=== PATIENT | male | born 1935 | race Caucasian/White ===

== ENCOUNTER 2019-09-29 17:58 | Observation (INO) | payer MEDICARE, BC ==
--- NOTE | 2019-09-29 18:21 | ED ---
General Adult HPI - General Chief complaint: Extremity Injury, Lower Stated complaint: blood clot Time Seen by Provider: 09/29/19 18:08 Source: patient, RN notes reviewed Mode of arrival: ambulatory Limitations: no limitations - History of Present Illness Initial comments: 84-year-old male presents to the emergency department for a chief complaint of swelling of the right leg. This occurred while patient was down in [place] and started on about September 14. Patient then came by vehicle back to [place] last week. Swelling did not improve so patient had a d-dimer performed which was positive. Patient had an outpatient ultrasound performed today. She was sent to the emergency department for evaluation of this ultrasound report. He denies any pain of the right lower side. Denies any chest pains or shortness of breath. Patient has no other complaints at this time including shortness of breath, chest pain, abdominal pain, nausea or vomiting, headache, or visual changes. - Related Data Home Medications Medication Instructions Recorded Confirmed Allopurinol [Zyloprim] 100 mg PO DAILY 09/29/19 09/29/19 Apixaban [Eliquis] 5 mg PO BID 09/29/19 09/29/19 Aspirin EC [Ecotrin Low Dose] 81 mg PO DAILY 09/29/19 09/29/19 Finasteride [Proscar] 5 mg PO DAILY 09/29/19 09/29/19 Folic Acid 1 mg PO DAILY 09/29/19 09/29/19 Thiamine [Vitamin B-1] 100 mg PO DAILY 09/29/19 09/29/19 Timolol 0.25% Ophth Soln [Timoptic 1 drop BOTH EYES HS 09/29/19 09/29/19 0.25% Ophth Soln] traZODone HCL [Desyrel] 50 mg PO HS 09/29/19 09/29/19 Allergies Allergy/AdvReac Type Severity Reaction Status Date / Time amoxicillin AdvReac Unknown Verified 09/29/19 19:04 Penicillins AdvReac HICCUPS Verified 09/29/19 19:04 Review of Systems ROS Statement: Those systems with pertinent positive or pertinent negative responses have been documented in the HPI. ROS Other: All systems not noted in ROS Statement are negative. Past Medical History Past Medical History: Prostate Disorder History of Any Multi-Drug Resistant Organisms: None Reported Past Surgical History: No Surgical Hx Reported Past Psychological History: Anxiety, Depression Smoking Status: Never smoker Past Alcohol Use History: Daily Past Drug Use History: None Reported General Exam Limitations: no limitations General appearance: alert, in no apparent distress Head exam: Present: atraumatic, normocephalic, normal inspection Eye exam: Present: normal appearance, PERRL, EOMI. Absent: scleral icterus, conjunctival injection, periorbital swelling ENT exam: Present: normal exam, mucous membranes moist Neck exam: Present: normal inspection, full ROM. Absent: tenderness, meningismus, lymphadenopathy Respiratory exam: Present: normal lung sounds bilaterally. Absent: respiratory distress, wheezes, rales, rhonchi, stridor Cardiovascular Exam: Present: regular rate, normal rhythm, normal heart sounds. Absent: systolic murmur, diastolic murmur, rubs, gallop, clicks GI/Abdominal exam: Present: soft, normal bowel sounds. Absent: distended, tenderness, guarding, rebound, rigid Neurological exam: Present: alert Psychiatric exam: Present: normal affect, normal mood Course Vital Signs 09/29/19 09/29/19 09/29/19 18:00 18:05 21:05 Temperature 98.1 F Pulse Rate 77 Pulse Rate [ 82 Supine Pulse Oximetery] Respiratory 20 20 18 Rate Blood Pressure 152/81 O2 Sat by Pulse 96 Oximetry Medical Decision Making - Medical Decision Making Ultrasound obtained 09/29/19 (today) shows a fairly extensive occlusive and nonocclusive right lower extremity deep venous thrombosis. This includes occlusive mid and distal popliteal vein DVT and nonocclusive right common femoral vein and proximal right femoral vein DVT. Case was discussed with Dr. Torres who accepts admission. Patient was heparinized. Dr. Torres does request a consult to Dr. Vanegas which was ordered. Patient was ordered nothing by mouth diet after midnight. Patient's son Eloina did express patient has difficulty sleeping at night and trazodone has not been helping. Patient was ordered Ativan when necessary for insomnia. - Lab Data Result diagrams: 09/29/19 18:49 09/29/19 18:49 Disposition Clinical Impression: Dvt femoral (deep venous thrombosis) Disposition: ADMITTED IP TO THIS [facility] Condition: Fair Is patient prescribed a controlled substance at d/c from ED?: No Time of Disposition: 18:49
[2019-09-29] MEDS ORDERED: NALOXONE 0.4 MG/ML 1 ML VIAL IV PRN (18:45)
[2019-09-29] MEDS ORDERED: HYDROcodone/APAP 5-325MG 1 EACH TAB PO PRN (18:45)
[2019-09-29] MEDS ORDERED: LORazepam 0.5 MG TAB PO PRN (18:54)
[2019-09-29] MEDS ORDERED: HEPARIN SODIUM,PORCINE 10,000 UNIT/ML 1 ML VIAL IV ONE (18:55)
[2019-09-29] MEDS ORDERED: HEPARIN SODIUM,PORCINE 5,000 UNIT/ML 1 ML VIAL IV PRN (18:55)
[2019-09-29] MEDS ORDERED: HEPARIN SOD,PORK IN 0.45% NACL 25,000 UNIT in 0.45% NACL 1 250ML.BAG IV SCH (19:00)
[2019-09-29 19:15] LABS: HCT 38.9 % (39.0-53.0); HGB 13.1 gm/dL (13.0-17.5); MCH 37.4 pg (25.0-35.0); MCHC 33.8 g/dL (31.0-37.0); MCV 110.8 fL (80.0-100.0); Macrocytosis Marked; Platelet Count 262 k/uL (150-450); RBC 3.51 m/uL (4.30-5.90); RDW 14.6 % (11.5-15.5); WBC 5.4 k/uL (3.8-10.6)
[2019-09-29 19:20] LABS: INR 0.9 (<1.2); Partial Thromboplastin Time 22.6 sec (22.0-30.0); Prothrombin Time 9.7 sec (9.0-12.0)
[2019-09-29 19:30] LABS: ALT 46 U/L (4-49); AST 69 U/L (17-59); African American GFR (CKD) >90 (>60 ml/min/1.73 sqM); Albumin 3.3 g/dL (3.5-5.0); Alkaline Phosphatase 175 U/L (38-126); Anion Gap 7 mmol/L; Blood Urea Nitrogen 12 mg/dL (9-20); Calcium 8.6 mg/dL (8.4-10.2); Carbon Dioxide 27 mmol/L (22-30); Chloride 102 mmol/L (98-107); Glucose 106 mg/dL (74-99); Non-African American GFR(CKD) 84 (>60 ml/min/1.73 sqM); Potassium 3.6 mmol/L (3.5-5.1); Sodium 136 mmol/L (137-145); Total Bilirubin 0.5 mg/dL (0.2-1.3); Total Protein 6.1 g/dL (6.3-8.2)
[2019-09-29 19:33] LABS: Band Neutrophils % 2 %; Eosinophils # (M) 0.22 k/uL (0-0.7); Lymphocytes # (M) 1.08 k/uL (1.0-4.8); Metamyelocytes # (M) 0.22 k/uL (0); Metamyelocytes % 4 %; Monocytes # (M) 0.59 k/uL (0-1.0); Neutrophils % (M) 60 %; Nucleated Red Blood Cells 0 /100 WBC (0-0); Total Cells Counted 200
[2019-09-29] MEDS: SODIUM CHLORIDE 0.9% 1,000 ML IV SCH (20:04)
[2019-09-30] MEDS: SODIUM CHLORIDE 0.9% 1,000 ML IV SCH (05:18)
[2019-09-30 07:49] LABS: HCT 37.9 % (39.0-53.0); HGB 12.5 gm/dL (13.0-17.5); MCH 36.2 pg (25.0-35.0); MCHC 32.9 g/dL (31.0-37.0); MCV 109.9 fL (80.0-100.0); Macrocytosis Marked; Platelet Count 255 k/uL (150-450); RBC 3.45 m/uL (4.30-5.90); RDW 14.2 % (11.5-15.5); WBC 4.1 k/uL (3.8-10.6)
[2019-09-30 08:19] LABS: Band Neutrophils % 2 %; Eosinophils # (M) 0.08 k/uL (0-0.7); Lymphocytes # (M) 1.35 k/uL (1.0-4.8); Metamyelocytes # (M) 0.25 k/uL (0); Metamyelocytes % 6 %; Monocytes # (M) 0.53 k/uL (0-1.0); Myelocytes # (M) 0.25 k/uL (0); Myelocytes % 6 %; Neutrophils % (M) 39 %; Nucleated Red Blood Cells 0 /100 WBC (0-0); Poikilocytosis (M) Present; Total Cells Counted 200
[2019-09-30 08:51] LABS: ALT 36 U/L (4-49); AST 47 U/L (17-59); African American GFR (CKD) >90 (>60 ml/min/1.73 sqM); Albumin 2.6 g/dL (3.5-5.0); Alkaline Phosphatase 134 U/L (38-126); Anion Gap 7 mmol/L; Blood Urea Nitrogen 10 mg/dL (9-20); Calcium 7.9 mg/dL (8.4-10.2); Carbon Dioxide 23 mmol/L (22-30); Chloride 107 mmol/L (98-107); Glucose 92 mg/dL (74-99); Non-African American GFR(CKD) 87 (>60 ml/min/1.73 sqM); Potassium 3.6 mmol/L (3.5-5.1); Sodium 137 mmol/L (137-145); Total Bilirubin 0.6 mg/dL (0.2-1.3); Total Protein 5.1 g/dL (6.3-8.2)
[2019-09-30] MEDS ORDERED: FINASTERIDE 5 MG TAB PO SCH (09:00)
[2019-09-30] MEDS ORDERED: FOLIC ACID 1 MG TAB PO SCH (09:00)
[2019-09-30] MEDS ORDERED: FAMOTIDINE 20 MG TAB PO SCH (09:00)
[2019-09-30] MEDS ORDERED: THIAMINE 100 MG TAB PO SCH (09:00)
[2019-09-30] MEDS ORDERED: ALLOPURINOL 100 MG TAB PO SCH (09:00)
[2019-09-30] MEDS ORDERED: ASPIRIN 81 MG PO SCH (09:00)
[2019-09-30] MEDS ORDERED: APIXABAN 5 MG TAB PO SCH (10:15)
[2019-09-30] MEDS ORDERED: DULoxetine HCL 30 MG CAPSULE.DR PO SCH (10:30)
--- NOTE | 2019-09-30 11:37 | CT ---
EXAMINATION TYPE: CT angio chest DATE OF EXAM: 09/30/2019 COMPARISON: HISTORY: PE CT DLP: 395.2 mGycm Automated exposure control for dose reduction was used. CONTRAST: CTA scan of the thorax is performed with IV Contrast, patient injected with 100 mL of Isovue 370, pul monary embolism protocol. MIP images are created and reviewed. 3D reconstructed images are created on an independent workstation and reviewed. FINDINGS: LUNGS: The lungs are grossly clear, there is no concerning parenchymal mass or nodule identified. Kapil e mild thickening present of the fissure in the right lower lobe. There is some dependent atelectatic changes present. There is no pleural effusion or pneumothorax seen. The tracheobronchial tree is p atent. AORTA: No additional significant abnormality is seen. MEDIASTINUM: There is satisfactory enhancement of the pulmonary artery and its branches, there is no CT evidence for pulmonary embolism. There are no greater than 1 cm hilar or mediastinal lymph nodes. No pericardial effusion is seen. There are coronary artery calcifications present. Prominence of p ulmonary artery, correlate for possible pulmonary artery hypertension right middle lobe segmental pul monary artery appears diminutive, there may be proximal stenosis, axial image 76 OTHER: The gallbladder shows abnormal wall thickening. Increased attenuation within the gallbladder neck is consistent with gallstones. Old posterior left rib fractures appear healed. Marked arthropath y noted in the right shoulder. There is a hiatal hernia. There is extensive thoracic spondylosis. Pun ctate nonobstructive calculi are present within the kidneys. The spleen is enlarged.. IMPRESSION: FINDINGS SUGGEST CHOLECYSTITIS. NO EVIDENT PULMONARY EMBOLISM. CORONARY ARTERY DISEASE AND ADDITIONAL FINDINGS ABOVE. SPLENOMEGALY, NONOBSTRUCTIVE NEPHROLITHIASIS. A Red level critical message alert has been initiated for Shemar Torres MD via the [email or web address] System on 09/30/2019 11:34 AM. This message alert has been sent to Shemar Torres MD via the preferences provided by the clinician for the receipt of Radiology Critical Findings. Message ID [id number].
[2019-09-30 12:08] VITALS: BP 184/89; PULSE 73; RESP 17; TEMP 97.4
--- NOTE | 2019-09-30 12:16 | XR ---
Lumbar spine HISTORY: Back pain 3 views the lumbar spine There is a compression fracture with loss of height of 50-75% at L2, retropulsion of approximately 6 mm. Bone mineralization is reduced. Spondylolysis with anterolisthesis grade 1 L5-S1. Bone mineraliza tion is reduced. Sclerosis of the posterior elements of the lumbar spine compatible with facet arthro erum. Loss of disc height present at intervertebral levels. Is multilevel spondylosis. Dense vascula r calcifications are present. Contrast material present within the renal collecting systems. IMPRESSION: Fracture of L2 is of indeterminate age, findings related to the referring clinician at th e time of interpretation. Degenerative disc disease, spondylolysis and spondylolisthesis L5-S1. Osteo penia. Facet arthropathy.
--- NOTE | 2019-09-30 12:17 | XR ---
Thoracic spine HISTORY: Back pain 3 views of the thoracic spine There is multilevel spondylosis. Thoracic vertebral bodies show preserved height and alignment. Disc spaces relatively preserved. Bone mineralization is reduced. Degenerative disc changes are also noted within the cervical spine. IMPRESSION: Thoracic spondylosis. Osteopenia.
--- NOTE | 2019-09-30 12:54 | XR ---
EXAMINATION TYPE: XR chest 2V DATE OF EXAM: 09/30/2019 COMPARISON: NONE HISTORY: Shortness of breath TECHNIQUE: Frontal and lateral views of the chest are obtained. FINDINGS: There is no focal air space opacity, pleural effusion, or pneumothorax seen. The cardiac silhouette size is within normal limits. Suspect coronary artery calcifications. The osseous structu res are intact. Thoracic spondylosis is present. The aorta is dense. There are overlying cardiac lead s. Marked arthropathy noted in the shoulders, high riding shoulders may be indicative of chronic rota tor cuff tears. IMPRESSION: No acute cardiopulmonary process. Coronary artery disease suspected.
--- NOTE | 2019-09-30 13:26 | P.HPIM ---
History of Present Illness H&P Date: 09/29/19 Chief Complaint: Right proximal DVT, severe edema, mild shortness of breath, elevated alk ph 84-year-old male with past medical history of BPH, gout and osteoarthritis who had mild insomnia and mild depression who lost his in 09/12/2019 for an acute illness developed to have multiple organs failure end up dying unexpectedly on suddenly. Patient traveled from [place] slept one night on the way back home but developed to have worsening and increased edema of the lower extremity specially in the right side started in [place] and become a lot worse after he made it to [facility]. His family ended up convincing him to go for testing had a Doppler of the right leg at [facility] came back with positive blood clot in the proximal vein. Patient brought to demurs department was Covid negative still having significant swelling and pain started on heparin drip we will admit patient to the hospital consult vascular further testing including CTA might be done especially in the light of his mild shortness of breath. Ex Patient never had any blood clot in the past no clotting factor problem no blood disorders and never been diagnosed with cancer. Review of Systems CONSTITUTIONAL: Well-developed no acute respiratory distress. EYES: No icterus sclerae, no conjunctivitis. EARS, NOSE, MOUTH, THROAT, and FACE: No sore throat, lymphadenopathy, carotid bruits or deformity. RESPIRATORY: Mild SOB no cough or wheezes. CARDIOVASCULAR: No CP, Palpitation, PND, Orthopnea, or angina. GASTROINTESTINAL: No Abd pain, Nausea or vomiting, no Diarrhea or constipation, No GI Bleed, no distention or masses. GENITOURINARY: Negative for Hematuria or UTI, no kidney stones. INTEGUMENT/BREAST: Negative for any muscular injury with mild osteoarthritis.. HEMATOLOGIC/LYMPHATIC: Negative for bleed or purpura. MUSCULOSKELTAL: Mild edema of the lower extremity with discomfort and pain in the right side. Lower back discomfort. NEURLOGICAL: No LOC, Sz or syncope, blurred vision dizziness or abnormality.. BEHAVIORAL/PSYCH: Mild depression and acute daily. ENDOCRINE: Negative. Past Medical History Past Medical History: Prostate Disorder History of Any Multi-Drug Resistant Organisms: None Reported Past Surgical History: No Surgical Hx Reported Past Anesthesia/Blood Transfusion Reactions: No Reported Reaction Past Psychological History: Anxiety, Depression Smoking Status: Never smoker Past Alcohol Use History: Daily Past Drug Use History: None Reported Medications and Allergies Home Medications Medication Instructions Recorded Confirmed Type Allopurinol [Zyloprim] 100 mg PO DAILY 09/29/19 09/29/19 History Aspirin EC [Ecotrin Low Dose] 81 mg PO DAILY 09/29/19 09/29/19 History Finasteride [Proscar] 5 mg PO DAILY 09/29/19 09/29/19 History Folic Acid 1 mg PO DAILY 09/29/19 09/29/19 History Thiamine [Vitamin B-1] 100 mg PO DAILY 09/29/19 09/29/19 History Timolol 0.25% Ophth Soln [Timoptic 1 drop BOTH EYES HS 09/29/19 09/29/19 History 0.25% Ophth Soln] traZODone HCL [Desyrel] 50 mg PO HS 09/29/19 09/29/19 History Apixaban [Eliquis] 10 mg PO DAILY #60 tab 09/30/19 Rx Famotidine [Pepcid] 20 mg PO DAILY tab 09/30/19 Rx HYDROcodone/APAP 5-325MG [[place] 1 each PO Q4HR PRN #12 tab 09/30/19 Rx 5-325] LORazepam [Ativan] 0.5 mg PO HS PRN #7 tab 09/30/19 Rx Allergies Allergy/AdvReac Type Severity Reaction Status Date / Time amoxicillin AdvReac Unknown Verified 09/29/19 19:04 Penicillins AdvReac HICCUPS Verified 09/29/19 19:04 Physical Exam Vitals: Vital Signs Temp Pulse Pulse Resp BP BP Pulse Ox 09/30/19 12:08 97.4 F L 73 17 184/89 97 09/30/19 08:00 73 17 09/30/19 05:18 98.4 F 77 22 147/74 92 L 09/30/19 00:00 82 18 09/29/19 22:09 97.9 F 82 18 147/69 95 09/29/19 21:05 82 18 09/29/19 18:05 20 09/29/19 18:00 98.1 F 77 20 152/81 96 Intake and Output 09/29/19 09/30/19 09/30/19 22:59 06:59 14:59 Intake Total 250 694.876 69.5 Balance 250 694.876 69.5 Intake: Intake, IV Titration 100 694.876 69.5 Amount Heparin Sod,Pork in 0.45% 94.876 69.5 NaCl 25,000 unit In 0.45 % NaCl 1 250ml.bag @ 18 UNITS/KG/HR 13.717 mls/hr IV .[id number] YOUNG Rx#: [id number] Sodium Chloride 0.9% 1, 100 600 000 ml @ 100 mls/hr IV . Q10H YOUNG Rx#:[id number] Oral 150 Other: Voiding Method Toilet Toilet Toilet Urinal Urinal Urinal # Voids 1 1 Weight 76.204 kg General Appearance: Alert, cooperative, no distress, appears stated age. Neck HEENT: Supple, no lymphadenopathy, no thyroid enlargement, no carotid bruits. Lungs: Clear to auscultation without crackles or wheezes no rhonchi, no deformity. Chest Wall: Chest wall normal expansion with deep inspiration no tenderness and no deformity was found on exam, no costochondral pain or discomfort. Heart: Regular rate and rhythm, S1, S2 normal, no murmur, rub or gallop. Back: Symmetric, no curvature, ROM normal, no CVA tenderness, slight discomfort in the lower lumbar area.. Abdomen: Soft, non-tender, bowel sounds active all four quadrants, no masses, no organomegaly. Extremities: Extremities normal, atraumatic, no cyanosis or edema. Pulses: 2+ and symmetric. Skin: Skin color, texture, tugor normal, no rashes or lesions. Neurologic: Alert oriented x3 cranial nerves II through XII intact, no motor deficit, no abnormal balance or gait. Results CBC & Chem 7: 09/30/19 07:19 09/30/19 07:19 Labs: Abnormal Lab Results - Last 24 Hours (Table) 09/29/19 09/29/19 09/30/19 Range/Units 18:49 18:49 01:41 RBC 3.51 L (4.30-5.90) m/uL Hgb (13.0-17.5) gm/dL Hct 38.9 L (39.0-53.0) % MCV 110.8 H (80.0-100.0) fL MCH 37.4 H (25.0-35.0) pg Metamyelocytes # (Man) 0.22 H (0) k/uL Myelocytes # (Manual) (0) k/uL Macrocytosis Marked A APTT 69.8 H (22.0-30.0) sec Sodium 136 L (137-145) mmol/L Glucose 106 H (74-99) mg/dL Calcium (8.4-10.2) mg/dL AST 69 H (17-59) U/L Alkaline Phosphatase 175 H (38-126) U/L Total Protein 6.1 L (6.3-8.2) g/dL Albumin 3.3 L (3.5-5.0) g/dL 09/30/19 09/30/19 09/30/19 Range/Units 07:19 07:19 07:19 RBC 3.45 L (4.30-5.90) m/uL Hgb 12.5 L (13.0-17.5) gm/dL Hct 37.9 L (39.0-53.0) % MCV 109.9 H (80.0-100.0) fL MCH 36.2 H (25.0-35.0) pg Metamyelocytes # (Man) 0.25 H (0) k/uL Myelocytes # (Manual) 0.25 H (0) k/uL Macrocytosis Marked A APTT 50.9 H (22.0-30.0) sec Sodium (137-145) mmol/L Glucose (74-99) mg/dL Calcium 7.9 L (8.4-10.2) mg/dL AST (17-59) U/L Alkaline Phosphatase 134 H (38-126) U/L Total Protein 5.1 L (6.3-8.2) g/dL Albumin 2.6 L (3.5-5.0) g/dL Thrombosis Risk Factor Assmnt - DVT/VTE Prophylaxis DVT/VTE Prophylaxis: Pharmacologic Prophylaxis ordered, Mechanical Prophylaxis ordered - Choose All That Apply Any of the Below Risk Factors Present?: Yes Each Factor Represents 1 point: Swollen legs (current) Other Risk Factors: Yes Each Risk Factor Represents 3 Points: Age 75 years or older, History of DVT/PE Other congenital or acquired thrombophilia - If yes, enter type in comment: No Thrombosis Risk Factor Assessment Total Risk Factor Score: 7 Thrombosis Risk Factor Assessment Level: High Risk Assessment and Plan Assessment: 1 acute DVT of thrombosis of the right leg: Patient was hospitalized will fidelia nue heparin drip consult vascular and will switch patient to oral request specially if he does well in the next 24 hours. 2 mild shortness of breath: To exclude the possibility of PE patient will be going for CTA, continue anticoagulation for now. 3 lower back pain: X-ray of the lumbar spine will be done try to exclude any lytic lesion from metastasis continue smaller dose of hydrocodone for pain and mild muscle relaxer if needed. 4 abnormal liver function tests with elevated alkaline phosphatase: Patient will be going for L-spine x-ray, CAT scan and if needed further liver testing can be done. 5 BPH: Remain on alpha-gallito with finasteride PSA was requested to exclude any possibility for cancer. 6 mild anemia: Continue multivitamins for now. 7 history of gout: Remain on allopurinol. 8 acute depression and mild grief: Patient be started on the Loxitane continue trazodone and add smaller dose of benzodiazepine as needed. CODE STATUS: Full code. Admit patient to inpatient status for 1-2 nights.
--- NOTE | 2019-09-30 13:30 | P.DS ---
Providers Date of admission: 09/29/19 18:44 Attending physician: Shemar Torres Consults: 09/29/19 18:45 Consult Physician Routine Consulting Provider: Marcus Arndt Consult Reason/Comments: proximal DVT Do you want consulting provider notified?: Yes Primary care physician: Physician Nonstaff Hospital Course: Chief Complaint: Right proximal DVT, severe edema, mild shortness of breath, elevated alk ph 84-year-old male with past medical history of BPH, gout and osteoarthritis who had mild insomnia and mild depression who lost his in 09/12/2019 for an acute illness developed to have multiple organs failure end up dying unexpectedly on suddenly. Patient traveled from [place] slept one night on the way back home but developed to have worsening and increased edema of the lower extremity specially in the right side started in [place] and become a lot worse after he made it to [facility]. His family ended up convincing him to go for testing had a Doppler of the right leg at [facility] came back with positive blood clot in the proximal vein. Patient brought to demurs department was Covid negative still having significant swelling and pain started on heparin drip we will admit patient to the hospital consult vascular further testing including CTA might be done especially in the light of his mild shortness of breath. Ex Patient never had any blood clot in the past no clotting factor problem no blood disorders and never been diagnosed with cancer. Further testing with CTA was done with no sign of PE, incidentally found to have subacute cholecystitis, patient is not having any symptom patient and family like to take care of this as an outpatient when patient is more stable and subtle with his grief specially with no symptom at this point. Also patient had compression of the L2-L3 looks like from an old injury patient and family remember post fall over 6 month ago had mild injury no sign of lytic lesion and no need for bone scan at this point. Review of Systems CONSTITUTIONAL: Well-developed no acute respiratory distress. EYES: No icterus sclerae, no conjunctivitis. EARS, NOSE, MOUTH, THROAT, and FACE: No sore throat, lymphadenopathy, carotid bruits or deformity. RESPIRATORY: Mild SOB no cough or wheezes. CARDIOVASCULAR: No CP, Palpitation, PND, Orthopnea, or angina. GASTROINTESTINAL: No Abd pain, Nausea or vomiting, no Diarrhea or constipation, No GI Bleed, no distention or masses. GENITOURINARY: Negative for Hematuria or UTI, no kidney stones. INTEGUMENT/BREAST: Negative for any muscular injury with mild osteoarthritis.. HEMATOLOGIC/LYMPHATIC: Negative for bleed or purpura. MUSCULOSKELTAL: Mild edema of the lower extremity with discomfort and pain in the right side. Lower back discomfort. NEURLOGICAL: No LOC, Sz or syncope, blurred vision dizziness or abnormality.. BEHAVIORAL/PSYCH: Mild depression and acute daily. ENDOCRINE: Negative. Physical Exam Vitals: General Appearance: Alert, cooperative, no distress, appears stated age. Neck HEENT: Supple, no lymphadenopathy, no thyroid enlargement, no carotid bruits. Lungs: Clear to auscultation without crackles or wheezes no rhonchi, no deformity. Chest Wall: Chest wall normal expansion with deep inspiration no tenderness and no deformity was found on exam, no costochondral pain or discomfort. Heart: Regular rate and rhythm, S1, S2 normal, no murmur, rub or gallop. Back: Symmetric, no curvature, ROM normal, no CVA tenderness, slight discomfort in the lower lumbar area.. Abdomen: Soft, non-tender, bowel sounds active all four quadrants, no masses, no organomegaly. Extremities: Extremities normal, atraumatic, no cyanosis or edema. Pulses: 2+ and symmetric. Skin: Skin color, texture, tugor normal, no rashes or lesions. Neurologic: Alert oriented x3 cranial nerves II through XII intact, no motor deficit, no abnormal balance or gait. Assessment and Plan Assessment: 1 acute DVT of thrombosis of the right leg: Patient was hospitalized will continue heparin drip consult vascular and will switch patient to oral request specially if he does well in the next 24 hours. 2 mild shortness of breath: To exclude the possibility of PE patient will be going for CTA, continue anticoagulation for now. 3 lower back pain: X-ray of the lumbar spine will be done try to exclude any lytic lesion from metastasis continue smaller dose of hydrocodone for pain and mild muscle relaxer if needed. 4 abnormal liver function tests with elevated alkaline phosphatase: Patient will be going for L-spine x-ray, CAT scan and if needed further liver testing can be done. 5 BPH: Remain on alpha-gallito with finasteride PSA was requested to exclude any possibility for cancer. 6 mild anemia: Continue multivitamins for now. 7 history of gout: Remain on allopurinol. 8 acute depression and mild grief: Patient be started on the Loxitane continue trazodone and add smaller dose of benzodiazepine as needed. 9 cholecystitis: Finding consistent with subacute decided not to do surgery why patient is inpatient we'll plan to do surgery in the next few weeks. 10 lumbar spine compression: In L2-L3, continue conservative management can be on muscle relaxer and hydrocodone as needed. Patient has done very well I had long discussion with the family agreeable to do gallbladder surgery as an outpatient and patient will be going home on oral anticoagulation with Eliquis 10 mg twice a day for 7 days then 5 mg twice a day for at least the next 3-6 months. Prescription was sent to the pharmacy patient and family feel well about going home today and he is going to be follow-up in the office in 4 days. Patient Condition at Discharge: Fair Plan - Discharge Summary Discharge Rx Participant: No New Discharge Prescriptions: New LORazepam [Ativan] 0.5 mg PO HS PRN #7 tab PRN Reason: Insomnia Apixaban [Eliquis] 10 mg PO DAILY #60 tab HYDROcodone/APAP 5-325MG [[place] 5-325] 1 each PO Q4HR PRN #12 tab PRN Reason: Moderate Pain Famotidine [Pepcid] 20 mg PO DAILY tab Continue traZODone HCL [Desyrel] 50 mg PO HS Timolol 0.25% Ophth Soln [Timoptic 0.25% Ophth Soln] 1 drop BOTH EYES HS Thiamine [Vitamin B-1] 100 mg PO DAILY Folic Acid 1 mg PO DAILY Finasteride [Proscar] 5 mg PO DAILY Aspirin EC [Ecotrin Low Dose] 81 mg PO DAILY Allopurinol [Zyloprim] 100 mg PO DAILY Discontinued Apixaban [Eliquis] 5 mg PO BID Discharge Medication List Allopurinol [Zyloprim] 100 mg PO DAILY 09/29/19 [History] Aspirin EC [Ecotrin Low Dose] 81 mg PO DAILY 09/29/19 [History] Finasteride [Proscar] 5 mg PO DAILY 09/29/19 [History] Folic Acid 1 mg PO DAILY 09/29/19 [History] Thiamine [Vitamin B-1] 100 mg PO DAILY 09/29/19 [History] Timolol 0.25% Ophth Soln [Timoptic 0.25% Ophth Soln] 1 drop BOTH EYES HS 09/29/19 [History] traZODone HCL [Desyrel] 50 mg PO HS 09/29/19 [History] Apixaban [Eliquis] 10 mg PO DAILY #60 tab 09/30/19 [Rx] Famotidine [Pepcid] 20 mg PO DAILY tab 09/30/19 [Rx] HYDROcodone/APAP 5-325MG [[place] 5-325] 1 each PO Q4HR PRN #12 tab 09/30/19 [Rx] LORazepam [Ativan] 0.5 mg PO HS PRN #7 tab 09/30/19 [Rx] Follow up Appointment(s)/Referral(s): Shemar Torres MD [Medical Doctor] - 1 Week Patient Instructions/Handouts: Hydrocodone/Acetaminophen (By mouth), Lorazepam (By mouth), Apixaban (By mouth), Venous Thromboembolism (DC) Activity/Diet/Wound Care/Special Instructions: diet as tolerated activity limited until sen by call on Wednesday to schedule appointments (office closed on Sat) Discharge Disposition: HOME SELF-CARE
--- NOTE | 2019-09-30 20:48 | CONS ---
DATE OF CONSULTATION: 09/30/2019 This is an 84-year-old gentleman who was seen on consultation. The patient has developed deep vein thrombosis of the right lower extremity. Patient was administered heparin and started on Eliquis. No shortness of breath. The patient had a CT of the chest which showed no evidence for pulmonary embolism. The patient also was diagnosed with some cholecystitis issue. Patient has some issue of acute depression, patient on medication. PHYSICAL EXAMINATION: Patient was seen in his room, lying comfortably in bed. NECK: Supple. Trachea central. CHEST: Clear to auscultation. ABDOMEN: Soft. Femoral pulses are present. Dorsalis pedis is palpable. No vascular compromise of the right lower extremity. The patient is going home this afternoon and the patient will follow up with Dr. Torres and on Eliquis. At this point there is no indication for any surgical intervention. MMODL / IJN: [id number] / MTDD
[2019-09-30] MEDS ORDERED: traZODone HCL 50 MG TAB PO SCH (21:00)
[2019-09-30] MEDS ORDERED: TIMOLOL 0.25% OPHTH DROPS 5 ML BTL BOTH EYES SCH (21:00)
== END 2019-09-30 17:22 | disposition home or self-care (01) ==
LOC: EC 17:58 → 5NMEDONC 18:44
PROVIDERS: ADMIT Internal Medicine Geriatric Medicine; ATTEND Internal Medicine Geriatric Medicine
DX: I82.411 Acute embolism and thrombosis of right femoral vein (principal); I82.431 Acute embolism and thrombosis of right popliteal vein; D64.9 Anemia, unspecified; R06.02 Shortness of breath; F32.9 Major depressive disorder, single episode, unspecified; F41.9 Anxiety disorder, unspecified; G47.00 Insomnia, unspecified; N40.0 Benign prostatic hyperplasia without lower urinary tract symptoms; Z79.82 Long term (current) use of aspirin; Z79.899 Other long term (current) drug therapy; Z03.818 Encounter for observation for suspected exposure to other biological agents ruled out; Z88.1 Allergy status to other antibiotic agents; Z88.0 Allergy status to penicillin; R94.5 Abnormal results of liver function studies; R74.8 Abnormal levels of other serum enzymes; M10.9 Gout, unspecified; K81.9 Cholecystitis, unspecified; M48.56XA Collapsed vertebra, not elsewhere classified, lumbar region, initial encounter for fracture
CPT/HCPCS: 96366 ×2; 96376; 96365; 99285; 36415; 84153; 80053 ×2; 85025 ×2; 85610; 85730 ×2; 87635; 72070; 72100; 71046; 71275; G0378 ×2; S0138; J1644 ×2; Q9967

== ENCOUNTER → 2020-07-26 | Outpatient (CLI) | payer MEDICARE, BC ==
--- NOTE | 2020-07-26 13:13 | XR ---
EXAMINATION TYPE: XR Hip Complete LT DATE OF EXAM: 07/26/2020 CLINICAL HISTORY: Left hip pain for 6 weeks TECHNIQUE: AP and frogleg views of the left hip are obtained. COMPARISON: None. FINDINGS: There is advanced degenerative change left hip with marked joint space loss, there is bone -on-bone formation and extensive subchondral cystic change. Moderate to severe acetabular and head ne ck collar spurring. Deformity to the superior aspect humeral head or loss of spherical shape. There i s 1.3 cm ovoid bony density presumed intra-articular loose body. IMPRESSION: As above.
== END ==
LOC: RADXRMAIN 12:36
PROVIDERS: ATTEND Psychiatry & Neurology Neurology
DX: M16.12 Unilateral primary osteoarthritis, left hip (principal); M85.452 Solitary bone cyst, left pelvis; M76.892 Other specified enthesopathies of left lower limb, excluding foot; M21.952 Unspecified acquired deformity of left thigh
CPT/HCPCS: 73502

== ENCOUNTER → 2020-09-30 | Outpatient (CLI) | payer MEDICARE, BC ==
--- NOTE | 2020-09-30 12:18 | US ---
EXAMINATION TYPE: US abdomen complete DATE OF EXAM: 09/30/2020 COMPARISON: CT 09/30/2019 CLINICAL HISTORY: K81.9 Cholecystitis. Very difficult and limited exam due to overlying bowel gas and barrel chested body habitus EXAM MEASUREMENTS: Liver Length: 13.8 cm Gallbladder Wall: 0.4 cm this is mildly thickened. No pericholecystic fluid. CBD: 0.5 cm Spleen: 11.7 cm Right Kidney: 9.7 x 5.7 x 4.5 cm Left Kidney: 9.7 x 5.6 x 3.9 cm Pancreas: Obscured by bowel gas Liver: wnl as visualized Gallbladder: Difficult visualization, wall appears thickened. Some possible echogenic debris visuali zed Evidence for sonographic Babcock's sign: No CBD: wnl as visualized Spleen: wnl Right Kidney: No hydronephrosis or masses seen Left Kidney: No hydronephrosis or masses seen Upper IVC: Limited visualization Abd Aorta: Limited visualization Mildly thickened gallbladder wall without gallstones or pericholecystic fluid. Babcock's sonographic s ign is negative. The pancreas is obscured by overlying bowel gas. No renal calculi or hydronephrosis. IMPRESSION: 1. The pancreas is obscured by overlying bowel gas. Limited visualization of the abdominal aorta and IVC due to overlying bowel gas. 2. Mildly thickened gallbladder wall without gallstones or pericholecystic fluid. Babcock's sonographi c sign is negative. Common duct is within normal limits at 5 mm. 3. No hydronephrosis or shadowing renal calculi.
== END | disposition home or self-care (01) ==
LOC: RADUSWWP 10:09
PROVIDERS: ATTEND Internal Medicine Geriatric Medicine
DX: K81.9 Cholecystitis, unspecified (principal)
CPT/HCPCS: 76700

== ENCOUNTER → 2020-12-16 | Outpatient (CLI) | payer MEDICARE, BC ==
[2020-12-16 12:07] LABS: HCT 48.2 % (39.0-53.0); HGB 15.7 gm/dL (13.0-17.5); MCH 31.9 pg (25.0-35.0); MCHC 32.5 g/dL (31.0-37.0); MCV 98.1 fL (80.0-100.0); Mean Platelet Volume 6.9; Platelet Count 206 k/uL (150-450); RBC 4.92 m/uL (4.30-5.90); RDW 12.9 % (11.5-15.5); WBC 6.6 k/uL (3.8-10.6)
[2020-12-16 12:21] LABS: Calcium 9.1 mg/dL (8.4-10.2); Potassium 4.4 mmol/L (3.5-5.1); Total Bilirubin 0.9 mg/dL (0.2-1.3); Total Protein 6.7 g/dL (6.3-8.2)
[2020-12-16 12:23] LABS: Partial Thromboplastin Time 23.8 sec (22.0-30.0); Prothrombin Time 10.7 sec (9.0-12.0)
[2020-12-16 12:59] LABS: Appearance,Urine Clear (Clear); Bilirubin,Urine Negative (Negative); Blood,Urine Negative (Negative); Color,Urine Yellow; Glucose,Urine (UA) Negative (Negative); Ketones,Urine Negative (Negative); Leukocyte Esterase,Urine Negative (Negative); Nitrite,Urine Negative (Negative); Protein,Urine Negative (Negative); Specific Gravity,Urine 1.016 (1.001-1.035); Urobilinogen,Urine <2.0 mg/dL (<2.0)
== END | disposition home or self-care (01) ==
LOC: LABPAT 11:28
PROVIDERS: ATTEND Orthopaedic Surgery
DX: Z01.812 Encounter for preprocedural laboratory examination (principal); Z01.810 Encounter for preprocedural cardiovascular examination
CPT/HCPCS: 36415; 80053; 81003; 85027; 85610; 85730; 87070

== ENCOUNTER 2020-12-24 10:50 | Day surgery (SDC) | payer MEDICARE, BC ==
[2020-12-18 11:11] VITALS: BMI 27.2
[~2020-12-24 10:50] MED LIST: ACETAMINOPHEN TAB 500 MG TAB PO PRN; DEXAMETHASONE SOD PHOSPHATE 4 MG/ML 1 ML VIAL IV ONE; GABAPENTIN 300 MG CAP PO PRN; HYDROmorphone 0.5 MG/0.5 ML SYRINGE IVP PRN; MIDAZOLAM 2 MG/2 ML VIAL IV PRN; ONDANSETRON 4 MG/2 ML VIAL IVP ONE; ROPIVACAINE/EPI/CLONIDINE/KET 50 ML SYRINGE MISCELLANE PRN; TRANEXAMIC ACID 1,000 MG in SODIUM CHLORIDE 0.9% 100 ML IVPB PRN
[2020-12-24] MEDS: LACTATED RINGERS 1,000 ML IV SCH (11:17)
[2020-12-24] MEDS ORDERED: PROPOFOL 10 MG/ML 20 ML VIAL IV ONE (13:04)
[2020-12-24] MEDS ORDERED: MIDAZOLAM 2 MG/2 ML VIAL ONE (13:04)
[2020-12-24] MEDS ORDERED: HEPARIN SODIUM,PORCINE 10,000 UNIT/ML 1 ML VIAL ONE (13:04)
[2020-12-24] MEDS ORDERED: TRANEXAMIC ACID 1,000 MG/10 ML VIAL ONE (13:04)
[2020-12-24] MEDS ORDERED: SODIUM CHLORIDE 0.9% IRRIG 1,000 ML BTL IRRIGATION ONE (13:04)
[2020-12-24] MEDS ORDERED: SODIUM CHLORIDE 0.9% 100 ML BAG ONE (13:04)
[2020-12-24] MEDS ORDERED: NALOXONE 0.4 MG/ML 1 ML VIAL IV PRN (13:09)
[2020-12-24] MEDS ORDERED: HYDROmorphone 0.2 MG/1 ML SYRINGE IVP PRN (13:09)
[2020-12-24] MEDS ORDERED: ONDANSETRON 4 MG/2 ML VIAL IVP PRN (13:09)
[2020-12-24] MEDS ORDERED: HYDROmorphone 0.5 MG/0.5 ML SYRINGE IVP PRN ×2 (13:09)
[2020-12-24] MEDS ORDERED: MAGNESIUM HYDROXIDE 2,400 MG/10 ML CUP PO PRN (13:09)
[2020-12-24] MEDS ORDERED: HYDROcodone/APAP 7.5-325MG 1 EACH TAB PO PRN (13:11)
--- NOTE | 2020-12-24 14:23 | P.OP ---
Date of Procedure: 12/24/20 Preoperative Diagnosis: Severe osteoarthritis left hip Postoperative Diagnosis: Severe osteoarthritis left hip Procedure(s) Performed: Total hip arthroplasty with a direct anterior approach Implants: [employer] Polarstem standard size 5 [employer] R3, 3 hole hemispherical acetabular shell, 54 mm [employer] Reflection 6.5 mm cancellus screw, 20 mm 2 [employer] R3, XLPE 20 acetabular liner [employer]hew Oxinium femoral head 36 m, +0 All components were press-fit. The articulation is Oxinium on polyethylene. Anesthesia: spinal Surgeon: Gulshan Bhakta English As A Second Language Teacher #1: Melba Juares Estimated Blood Loss (ml): 150 (66 mL returned with Cell Saver) Pathology: other (Femoral head) Condition: stable Disposition: PACU Indications for Procedure: After failure of conservative treatment we discussed the surgical and nonsurgical treatment options at length. Patient wishes to proceed with a total hip arthroplasty with a direct anterior approach. Complications specific to this procedure were discussed at length, including but not limited to infection, leg length discrepancy, dislocation, nerve injury, and fracture. Covid-19 was also discussed at length with the patient, and they are aware of the current policies and procedures. The patient was given the option of delaying surgery, but they elect to proceed knowing these risks. Patient is aware of all these complications and informed consent was obtained Operative Findings: The operative findings are consistent with severe osteoarthritis of the left hip Description of Procedure: Patient was seen and evaluated in the preoperative area and the consent was reviewed. The operative site was marked with a skin marker. The patient was then brought to the operating room and given preoperative antibiotics intravenously. 1 g of Tranexamic acid was also given intravenously. A spinal anesthetic was administered by the anesthesia department. The patient was then placed on the [place] table with the bony prominences well-padded. The hip area was then prepped with a ChloraPrep solution and draped in the usual sterile fashion. A universal timeout was then performed, which confirmed the patient's name, surgical site, ALLERGIES, and procedure being performed on the consent. Next the incision site was located at 1 cm distal to the anterior superior iliac spine along the flexion crease of the hip. The skin and subcutaneous tissues were sharply incised. Incision was carefully dissected down to the fascia overlying the tensor fascia jacoby muscle. This fascia was then incised in line with the incision. Care was taken to stay laterally in order to avoid injuring the lateral femoral cutaneous nerve. Next, using blunt finger dissection, the tensor fascia jacoby muscle was dissected off its investing fascia. The muscle was then carefully retracted laterally with a cobra retractor over the lateral neck of the femur. Next, the circumflex vessels were identified and cauterized using the AquaMantis device. The anterior hip capsule was then exposed. The capsule was then opened and an inverted T fashion. Cobra retractors were then placed intracapsularly. The retractors were maintained intracapsular throughout the procedure. The proximal femur was then visualized. A small amount of traction was placed on the leg. The femoral neck was then osteotomized appropriate level above the lesser trochanter. A small wedge of bone was then removed from the remaining femoral head. Next, using a corkscrew the femoral head was removed from the acetabulum. On gross visual inspection, the femoral head had complete loss of articular cartilage and multiple periarticular osteophytes. The femoral head was then measured. Attention was then turned to the acetabulum. The acetabulum was exposed and any remaining labrum was excised. Sequential reaming of the acetabulum was performed using fluoroscopic guidance until there was a good bed of bleeding cancellus bone. When the appropriate size was reached, a trial was then placed. The position and fit of the trial was checked with fluoroscopy. The trial was then removed. Then, using fluoroscopic guidance, the final implant was impacted at 20 of anteversion and 40 of abduction, and fully seated in the acetabulum. 2 screws were then placed in the acetabulum. Again fluoroscopy was used to check position of the screws. Next, the liner was then impacted, with a 20 elevated liner located in the anterior superior quadrant. Component locking was confirmed. Attention was then directed to the femur. With the aid of the [place] table, the femur was externally rotated to approximately 130, extended, and adducted under the opposite leg. A side hook was then placed under the proximal femur, and the side hook elevator was used to elevate the proximal femur while releasing the capsule. Retractors were then placed. A capsular release was performed, as well as a release of the conjoined tendon, which afforded excellent visualization of the proximal femur. Next, a box osteotome was used to lateralize the proximal femur. A hand mixer was then used to locate the femoral canal. Sequential broaching was then performed with appropriate size which afforded excellent fixation in the proximal femur. A trial was then placed with appropriate head and neck, and the hip was gently reduced with the aid of the [place] table. Fluoroscopy was then used to check position of the components, as well as to ensure equal leg lengths. The hip was then gently dislocated and the trials were then removed. Final implants were then impacted and the hip was again reduced. Final fluoroscopic x-rays confirmed that the components were in anatomic position, as well as equal leg lengths. The hip was also taken through range of motion, and found to be stable. The hip was then copiously irrigated with antibiotic solution with pulsatile lavage. The hip was then irrigated with Irrisept solution. The soft tissues were then injected with a ropivacaine solution, which consisted of 246.25 mg of ropivacaine, 0.5 mg of epinephrine, 30 mg of Toradol, 80 g of clonidine, and 48.45 mL of sterile water, for a total of 100 mL of fluid injected. A second dose of 1 g of Tranexamic acid was also given intravenously. Any blood collected by Cell Saver was then returned to the patient at this time. The fascia was then closed with 2-0 strata fix suture. The subcutaneous tissue was closed with 3-0 Vicryl. The subcuticular tissue was closed with 3-0 strata fix suture. The skin was then closed with Exofin skin glue. After the glue and dried, and Optifoam silver impregnated dressing was applied. The patient was then transferred to the recovery room in stable condition. The assistant director of public works NITIN Arrington was required due to the complexity of surgery, and the need for skilled ophthalmology surgical technician for positioning, draping, exposure, retraction, and closure of the wound.
--- NOTE | 2020-12-24 15:04 | FL ---
EXAMINATION TYPE: FL guidance operating room, XR Hip Limited LT DATE OF EXAM: 12/24/2020 CLINICAL HISTORY: Left hip pain and advanced osteoarthritis. TECHNIQUE: Fluoroscopy. Limited intraoperative views left hip. COMPARISON: Left hip x-ray July 26, 2020. FINDINGS: Fluoroscopic guidance was provided during left hip replacement procedure performed by Dr. Bhakta. A total of 16 seconds of fluoroscopic time was utilized during the procedure and 3 spot in traoperative images are acquired. Intraoperative images acquired show metallic hardware from left hip arthroplasty satisfactory in posi tion on frontal projection. IMPRESSION: As Above.
--- NOTE | 2020-12-24 15:18 | XR ---
EXAMINATION TYPE: XR Hip Limited LT DATE OF EXAM: 12/24/2020 CLINICAL HISTORY: Left hip pain and osteoarthritis. TECHNIQUE: Single AP portable view of left hip is obtained immediately postoperatively. COMPARISON: Left hip x-ray July 26, 2020. FINDINGS: Metallic hardware from total left hip arthroplasty is seen and appears satisfactory in alig nment and position. There is evidence of recent surgery with surrounding subcutaneous gas noted . IMPRESSION: Metallic hardware from total left hip arthroplasty is satisfactory in position.
[2020-12-24] MEDS: SODIUM CHLORIDE 0.9% 1,000 ML IV SCH (17:33)
[2020-12-24] MEDS ORDERED: NAPROXEN 250 MG TAB PO PRN (17:37)
[2020-12-24] MEDS: HYDROcodone/APAP 7.5-325MG 1 EACH TAB PO PRN (20:17)
[2020-12-24 20:26] VITALS: RESP 18
[2020-12-24] MEDS ORDERED: DULoxetine HCL 60 MG CAPSULE.DR PO SCH (21:00)
[2020-12-24] MEDS ORDERED: SENNOSIDES-DOCUSATE SODIUM 1 EACH TAB PO SCH (21:00)
[2020-12-25] MEDS: HYDROcodone/APAP 7.5-325MG 1 EACH TAB PO PRN (03:03)
[2020-12-25] MEDS: SODIUM CHLORIDE 0.9% 1,000 ML IV SCH (03:19)
[2020-12-25] MEDS: LACTATED RINGERS 1,000 ML IV SCH (06:52)
--- NOTE | 2020-12-25 07:33 | P.DS ---
Providers Expected date of discharge: 12/25/20 Attending physician: Gulshan Bhakta Consults: 12/24/20 13:09 Consult Physician Routine Consulting Provider: Shemar Torres Reason/Comments: medical management Do you want consulting provider notified?: Yes Primary care physician: Shemar Torres - Discharge Diagnosis(es) (1) Primary osteoarthritis of left hip Current Visit: Yes Status: Acute (2) Status post total hip replacement, left Current Visit: Yes Status: Acute Hospital Course: This is an 85-year-old male with known history of degenerative arthritis of the left hip. The patient presents for evaluation. After discussion and consideration patient elects to proceed with total left hip arthroplasty with anterior approach. The patient is seen preoperatively by his primary care physician and cleared for surgery. Patient is admitted to [facility] on 12/24/2020 for total hip arthroplasty with anterior approach. The procedure is performed without complication or sequelae. The patient is doing well postoperatively. Labs and vital signs are stable on day of discharge. On day of discharge patient's hip incision is healing well. There is minimal erythema. There is no drainage noted at this time. There is minimal soft tissue swelling to the hip and thigh. Patient has full foot and ankle motion without difficulty or pain. Neurovascular status to the left lower extremity is intact. Patient is discharged to home in good condition. Please see med rec for accurate list of home medications. Plan - Discharge Summary Discharge Rx Participant: Yes New Discharge Prescriptions: New HYDROcodone/APAP 7.5-325MG [[place] 7.5-325] 1 - 2 tab PO Q6H PRN #32 tab PRN Reason: Pain Sennosides [Senokot] 2 tab PO DAILY PRN #60 tablet PRN Reason: Constipation Ondansetron Odt [Zofran Odt] 1 tab PO Q8HR PRN #10 tab PRN Reason: Nausea Apixaban [Eliquis] 2.5 mg PO BID 35 Days #70 tab No Action Finasteride [Proscar] 5 mg PO DAILY allopurinoL [Zyloprim] 100 mg PO DAILY DULoxetine HCL [Cymbalta] 60 mg PO HS B Complex-Vit C-Vit E-Zinc [Z-Bec] 1 tab PO DAILY Naproxen Sodium [Aleve] 220 mg PO BID PRN PRN Reason: Pain Tamsulosin [Flomax] 0.4 mg PO DAILY Cholecalciferol [Vitamin D3 (25 Mcg = 1000 Iu)] 50 mcg PO DAILY Discharge Medication List Finasteride [Proscar] 5 mg PO DAILY 09/29/19 [History] allopurinoL [Zyloprim] 100 mg PO DAILY 09/29/19 [History] B Complex-Vit C-Vit E-Zinc [Z-Bec] 1 tab PO DAILY 12/18/20 [History] Cholecalciferol [Vitamin D3 (25 Mcg = 1000 Iu)] 50 mcg PO DAILY 12/18/20 [History] DULoxetine HCL [Cymbalta] 60 mg PO HS 12/18/20 [History] Naproxen Sodium [Aleve] 220 mg PO BID PRN 12/18/20 [History] Tamsulosin [Flomax] 0.4 mg PO DAILY 12/18/20 [History] Apixaban [Eliquis] 2.5 mg PO BID 35 Days #70 tab 12/24/20 [Rx] HYDROcodone/APAP 7.5-325MG [[place] 7.5-325] 1 - 2 tab PO Q6H PRN #32 tab 12/24/20 [Rx] Ondansetron Odt [Zofran Odt] 1 tab PO Q8HR PRN #10 tab 12/24/20 [Rx] Sennosides [Senokot] 2 tab PO DAILY PRN #60 tablet 12/24/20 [Rx] Follow up Appointment(s)/Referral(s): Gulshan Bhakta DO [Doctor of Osteopathic Medicine] - 2 Weeks Activity/Diet/Wound Care/Special Instructions: Weightbearing as tolerated with walker. Leave dressing intact. Dressing may be removed by home care nurse or by patient in 7 days. Then change dressing twice daily until follow up. May shower with initial dressing intact and after removal. If dressing become saturated, please remove. Please take Eliquis postoperatively to help prevent blood clots. Recommend use of compression stockings daily until follow up to help prevent swelling and blood clots. May remove at night before sleeping. Please follow-up with [facility] in 2 weeks and call with any questions or concerns, . Discharge Disposition: HOME WITH HOME HEALTH SERVICES
[2020-12-25 07:46] VITALS: BP 143/78; PULSE 72; TEMP 98.4
[2020-12-25] MEDS ORDERED: allopurinoL 100 MG TAB PO SCH (09:00)
[2020-12-25] MEDS ORDERED: TAMSULOSIN 0.4 MG CAP.ER.24H PO SCH (09:00)
[2020-12-25] MEDS ORDERED: APIXABAN 2.5 MG TABLET PO SCH (09:00)
[2020-12-25] MEDS ORDERED: FINASTERIDE 5 MG TAB PO SCH (09:00)
--- NOTE | 2020-12-25 10:51 | P.CONS ---
History of Present Illness - Reason for Consult Consult date: 12/24/20 Requesting physician: Gulshan Bhakta - Chief Complaint Medical management left hip arthroplasty - History of Present Illness Is an 82-year-old pleasant gentleman patient of Dr. Torres. Known history of worse arthritis, CAD, BPH, who is on short-term anticoagulation for previous DVT of the right leg DVT was in September 2019, and has been of a crease. Patient will start on a eliquis per recommendation for postop DVT prophylaxis. He was cleared medically by Dr. Torres 12/03/2020. Patient denies any history of CVA, no CHF, no asthma no COPD. Left total hip arthroplasty performed on 12/24/2020 without complications, patient is seen without any significant symptoms, inclu ding chest pain shortness of breath, no nausea no vomiting. Review of Systems Constitutional: Reports as per HPI, Denies anorexia, Denies chills, Denies chronic headaches, Denies chronic pain, Denies daytime sleepiness, Denies fatigue, Denies fever, Denies lethargy, Denies malaise, Denies night sweats, Denies poor appetite, Denies sweats, Denies weakness, Denies weight gain, Denies weight loss Ears, nose, mouth and throat: Reports as per HPI Cardiovascular: Reports as per HPI, Denies chest pain, Denies claudication, Denies decreased exercise tolerance, Denies dyspnea on exertion, Denies edema, Denies high blood pressure, Denies irregular heart beat, Denies leg edema, Denies lightheadedness, Denies orthopnea, Denies palpitations, Denies paroxysmal nocturnal dyspnea, Denies phlebitis, Denies rapid heart beat, Denies shortness of breath, Denies syncope Respiratory: Reports as per HPI, Denies cough, Denies dyspnea, Denies home oxygen, Denies pain on inspiration, Denies wheezing Gastrointestinal: Reports as per HPI, Denies abdominal pain, Denies diarrhea, Denies heartburn Genitourinary: Reports as per HPI Musculoskeletal: Reports as per HPI, Reports gait dysfunction, Reports limitation of motion, Denies arm numbness/tingling, Denies muscle cramps, Denies neck stiffness Integumentary: Reports as per HPI Neurological: Reports as per HPI, Reports gait dysfunction, Denies aphasia, Denies ataxia, Denies balance difficulties, Denies burning pain, Denies change in mentation, Denies change in smell/taste, Denies change in speech, Denies confusion, Denies convulsions, Denies double vision, Denies head injury, Denies headaches, Denies hearing difficulties, Denies lack of coordination, Denies loss of vision, Denies memory loss, Denies migraines, Denies motor disturbance, Denies numbness, Denies paralysis, Denies paresthesias, Denies seizures, Denies sensory deficit, Denies spasticity, Denies syncope, Denies tic, Denies tingling, Denies transient paralysis, Denies tremors, Denies vertigo, Denies weakness, Denies visual changes Psychiatric: Reports as per HPI Endocrine: Reports as per HPI Hematologic/Lymphatic: Reports as per HPI Allergic/Immunologic: Reports as per HPI Past Medical History Past Medical History: Deep Vein Thrombosis (DVT), Hearing Disorder / Deafness, Osteoarthritis (OA), Prostate Disorder Additional Past Medical History / Comment(s): DVT 09/2019. Hearing aids. Hx spinal fx from falls; gout. BPH. History of Any Multi-Drug Resistant Organisms: None Reported Past Surgical History: No Surgical Hx Reported Additional Past Surgical History / Comment(s): Bilat cataracts. Colonoscopy w/ polyps Past Anesthesia/Blood Transfusion Reactions: No Reported Reaction Past Psychological History: Anxiety, Depression Additional Psychological History / Comment(s): after of spouse Smoking Status: Former smoker Past Alcohol Use History: Daily Additional Past Alcohol Use History / Comment(s): Smoked in past, quit . No alcohol since 2019 Past Drug Use History: None Reported - Past Family History Mother Family Medical History: Cancer Additional Family Medical History / Comment(s): breast cancer Father Family Medical History: Cancer Additional Family Medical History / Comment(s): stomach cancer possibly Medications and Allergies Home Medications Medication Instructions Recorded Confirmed Type Finasteride [Proscar] 5 mg PO DAILY 09/29/19 12/18/20 History allopurinoL [Zyloprim] 100 mg PO DAILY 09/29/19 12/24/20 History B Complex-Vit C-Vit E-Zinc [Z-Bec] 1 tab PO DAILY 12/18/20 12/18/20 History Cholecalciferol [Vitamin D3 (25 50 mcg PO DAILY 12/18/20 12/18/20 History Mcg = 1000 Iu)] DULoxetine HCL [Cymbalta] 60 mg PO HS 12/18/20 12/24/20 History Naproxen Sodium [Aleve] 220 mg PO BID PRN 12/18/20 12/18/20 History Tamsulosin [Flomax] 0.4 mg PO DAILY 12/18/20 12/18/20 History Apixaban [Eliquis] 2.5 mg PO BID 35 Days #70 tab 12/24/20 Rx HYDROcodone/APAP 7.5-325MG [Butler 1 - 2 tab PO Q6H PRN #32 tab 12/24/20 Rx 7.5-325] Ondansetron Odt [Zofran Odt] 1 tab PO Q8HR PRN #10 tab 12/24/20 Rx Sennosides [Senokot] 2 tab PO DAILY PRN #60 tablet 12/24/20 Rx Allergies Allergy/AdvReac Type Severity Reaction Status Date / Time amoxicillin AdvReac Unknown Verified 12/24/20 11:16 Penicillins AdvReac HICCUPS Verified 12/24/20 11:16 Physical Exam Vitals: Vital Signs Temp Pulse Resp BP Pulse Ox 12/24/20 15:30 88 16 121/57 97 12/24/20 15:15 87 14 113/58 98 12/24/20 15:00 86 16 103/52 100 12/24/20 14:46 98.7 F 89 14 83/46 93 L 12/24/20 11:13 97.7 F 74 16 162/73 97 Intake and Output 12/24/20 12/24/20 12/24/20 06:59 14:59 22:59 Intake Total 1150 400 Output Total 150 Balance 1000 400 Intake: IV 1150 400 Output: Estimated Blood Loss 150 Other: Weight 81 kg 81 kg - Constitutional General appearance: cooperative, no acute distress - EENT Eyes: EOMI, PERRLA, dentition normal ENT: NA/AT, normal oropharynx - Neck Neck: normal ROM - Respiratory Respiratory: bilateral: CTA, negative: diminished, dullness, rales - Cardiovascular Rhythm: regular Heart sounds: normal: S1, S2 Abnormal Heart Sounds: no systolic murmur, no diastolic murmur, no rub, no S3 Gallop, no S4 Gallop, no click, no other - Gastrointestinal General gastrointestinal: normal bowel sounds, soft - Integumentary Integumentary: decreased turgor, normal - Neurologic Neurologic: CNII-XII intact - Musculoskeletal Musculoskeletal: strength equal bilaterally - Psychiatric Psychiatric: A&O x's 3, appropriate affect, intact judgment & insight Results CBC & Chem 7: 12/25/20 07:10 Labs: Laboratory Results Blood Type A Positive 12/16/20 11:34 Blood Type Confirm A Positive 12/24/20 11:20 Blood Type Recheck No Previous Record 12/16/20 11:34 Bld Type Recheck Status CABO Indicated 12/16/20 11:34 Antibody Screen NEGATIVE 12/16/20 11:34 Spec Expiration Date 12/26/20 1116 12/16/20 11:34 Assessment and Plan Plan: 1. 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 Continue on duloxetine, 60 mg as previous. 2. BPH without LUT S comes was seen 0.4 mg, daily finasteride 5 mg daily 3. Atherosclerotic heart disease, patient is asymptomatic currently, not on any aspirin prior to admission, not on any statin prior to admission 4. Gout, on allopurinol 100 mg daily 5 Glaucoma, on timolol eyedrops, 6. KENDRICK, when necessary Xanax as per home medication, duloxetine 60 mg daily Thank you Dr[address] Bhakta in allowing us to precipitate the care. Patient. We are going to follow him with you, J with current hospital stay, changes to regimen will be based on his clinical progress
[2020-12-25 11:42] LABS: Basophils # (A) 0.02 X 10*3/uL (0.00-0.10); Basophils % (A) 0.2 %; Eosinophils # (A) 0.02 X 10*3/uL (0.04-0.35); Eosinophils % (A) 0.2 %; HCT 37.8 % (39.6-50.0); HGB 12.4 g/dL (13.0-17.0); Lymphocytes # (A) 1.38 X 10*3/uL (0.90-5.00); Lymphocytes % (A) 11.2 %; MCH 31.6 pg (27.0-32.0); MCHC 32.8 g/dL (32.0-37.0); MCV 96.2 fL (80.0-97.0); Monocytes % (A) 12.1 %; Neutrophils % (A) 75.1 %; Platelet Count 172 X 10*3/uL (140-440); RBC 3.93 X 10*6/uL (4.40-5.60); RDW 12.7 % (11.5-14.5); WBC 12.37 X 10*3/uL (4.50-10.00)
[2020-12-25] MEDS ORDERED: CHOLECALCIFEROL 25 MCG (1000 IU) TABLET PO SCH (12:00)
--- NOTE | 2020-12-30 18:10 | P.PN ---
Subjective Progress Note Date: 12/30/20 This is an 82-year-old pleasant gentleman patient of Dr. Torres. Known history of worse arthritis, CAD, BPH, who is on short-term anticoagulation for previous DVT of the right leg DVT was in September 2019, and has been of a crease. Patient will start on a eliquis per recommendation for postop DVT prophylaxis. He was cleared medically by Dr. Torres 12/03/2020. Patient denies any history of CVA, no CHF, no asthma no COPD. Left total hip arthroplasty performed on 12/24/2020 without complications, patient is seen without any significant symptoms, including chest pain shortness of breath, no nausea no vomiting. 12/25, patirnt's pain is under good comtrol, participation with thrrspy, no light headedness, no vertigo. urine adequate, voids without problrms, no sideeffects tp narcotics. has adequate support for family members for patients recovery for home. continue incentivr s[iro, no medicstion chages this time, has stable vitals and labs. stable for dischage. Review of Systems Constitutional: Reports as per HPI, Denies anorexia, Denies chills, Denies chronic headaches, Denies chronic pain, Denies daytime sleepiness, Denies fatigue, Denies fever, Denies lethargy, Denies malaise, Denies night sweats, Denies poor appetite, Denies sweats, Denies weakness, Denies weight gain, Denies weight loss Ears, nose, mouth and throat: Reports as per HPI Cardiovascular: Reports as per HPI, Denies chest pain, Denies claudication, Denies decreased exercise tolerance, Denies dyspnea on exertion, Denies edema, Denies high blood pressure, Denies irregular heart beat, Denies leg edema, Denies lightheadedness, Denies orthopnea, Denies palpitations, Denies paroxysmal nocturnal dyspnea, Denies phlebitis, Denies rapid heart beat, Denies shortness of breath, Denies syncope Respiratory: Reports as per HPI, Denies cough, Denies dyspnea, Denies home oxygen, Denies pain on inspiration, Denies wheezing Gastrointestinal: Reports as per HPI, Denies abdominal pain, Denies diarrhea, Denies heartburn Genitourinary: Reports as per HPI Musculoskeletal: Reports as per HPI, Reports gait dysfunction, Reports limitation of motion, Denies arm numbness/tingling, Denies muscle cramps, Denies neck stiffness Integumentary: Reports as per HPI Neurological: Reports as per HPI, Reports gait dysfunction, Denies aphasia, Denies ataxia, Denies balance difficulties, Denies burning pain, Denies change in mentation, Denies change in smell/taste, Denies change in speech, Denies confusion, Denies convulsions, Denies double vision, Denies head injury, Denies headaches, Denies hearing difficulties, Denies lack of coordination, Denies loss of vision, Denies memory loss, Denies migraines, Denies motor disturbance, Denies numbness, Denies paralysis, Denies paresthesias, Denies seizures, Denies sensory deficit, Denies spasticity, Denies syncope, Denies tic, Denies tingling, Denies transient paralysis, Denies tremors, Denies vertigo, Denies weakness, Denies visual changes Psychiatric: Reports as per HPI Endocrine: Reports as per HPI Hematologic/Lymphatic: Reports as per HPI Allergic/Immunologic: Reports as per HPI Objective - Vital Signs Vital signs: Vital Signs Temp 98.4 F 12/25/20 07:20 Pulse 72 12/25/20 07:20 Resp 18 12/25/20 07:20 BP 143/78 12/25/20 07:20 Pulse Ox 95 12/25/20 07:20 Intake & Output 12/24/20 12/25/20 12/25/20 18:59 06:59 18:59 Intake Total 1690 Output Total 150 700 Balance 1540 -700 Weight 81 kg Intake: IV 1550 Intake, IV Titration 140 Amount Sodium Chloride 0.9% 1, 140 000 ml @ 70 mls/hr IV . [id number] [facility] Rx#:[id number] Output: Urine 700 Estimated Blood Loss 150 Other: Voiding Method Toilet Urinal - Constitutional General appearance: Present: cooperative, no acute distress - EENT Eyes: Present: EOMI, PERRLA, dentition normal ENT: Present: NA/AT, normal oropharynx - Integumentary Integumentary: Present: normal - Musculoskeletal Musculoskeletal: Present: generalized weakness, strength equal bilaterally - Psychiatric Psychiatric: Present: A&O x's 3, appropriate affect - Labs CBC & Chem 7: 12/25/20 07:10 Assessment and Plan Plan: 1. 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 Continue on duloxetine, 60 mg as previous. 2. BPH without LUT S comes was seen 0.4 mg, daily finasteride 5 mg daily 3. Atherosclerotic heart disease, patient is asymptomatic currently, not on any aspirin prior to admission, not on any statin prior to admission 4. Gout, on allopurinol 100 mg daily 5 Glaucoma, on timolol eyedrops, 6. KENDRICK, when necessary Xanax as per home medication, duloxetine 60 mg daily [address] you Dr[address] Bhakta in allowing us to precipitate the care. Patient. We are going to follow him with you, J with current hospital stay, changes to regimen will be based on his clinical progress
== END 2020-12-25 11:34 | disposition home health service (06) ==
LOC: OR 10:50 → 4SSUR 14:52 → OR 12-25 11:34
PROVIDERS: ATTEND Orthopaedic Surgery
DX: M16.12 Unilateral primary osteoarthritis, left hip (principal); H40.9 Unspecified glaucoma; Z79.899 Other long term (current) drug therapy; Z87.891 Personal history of nicotine dependence; N40.0 Benign prostatic hyperplasia without lower urinary tract symptoms; Z86.718 Personal history of other venous thrombosis and embolism; Z88.0 Allergy status to penicillin; Z79.01 Long term (current) use of anticoagulants; M19.90 Unspecified osteoarthritis, unspecified site; F41.9 Anxiety disorder, unspecified; F32.9 Major depressive disorder, single episode, unspecified; M10.9 Gout, unspecified
CPT/HCPCS: 97161; 97165; 86891; 85025; 88300; 73501; 27130; C1776; S0138; J2250; J1644; J1100; J0690 ×2; J2405; J2704; 86850; 86900; 86901

== ENCOUNTER → 2021-10-07 | Outpatient (CLI) | payer MEDICARE, BC ==
--- NOTE | 2021-10-07 15:43 | XR ---
EXAMINATION TYPE: XR chest 2V DATE OF EXAM: 10/07/2021 COMPARISON: 09/30/2019 HISTORY: 86-year-old male R05.9, cough for 2 months TECHNIQUE: Frontal and lateral views FINDINGS: Heart normal size. Mild atherosclerotic arch calcifications. Some central peribronchial cuffing. Some stringy areas of atelectasis are present in the lower lungs. No consolidation or pleural effusion. D ictation throughout the visualized thoracic spine. Loss of the subacromial space at the right shoulde r. IMPRESSION: 1. Peribronchial cuffing suggests bronchitis or chronic asthma. Strandy atelectasis in the lower lung s. 2. Chronic full thickness rotator cuff tear right shoulder.
== END | disposition home or self-care (01) ==
LOC: RADXRMAIN 14:10
PROVIDERS: ATTEND Internal Medicine Geriatric Medicine
DX: J98.11 Atelectasis (principal)
CPT/HCPCS: 71046

== ENCOUNTER → 2022-01-15 | Outpatient (CLI) | payer MEDICARE, BC ==
--- NOTE | 2022-01-16 09:10 | CT ---
EXAMINATION TYPE: CT facial bones wo con DATE OF EXAM: 01/15/2022 COMPARISON: None HISTORY: maxillary sinusitis. CT DLP: 795.50 mGycm Automated exposure control for dose reduction was used. TECHNIQUE: CT scan of the sinuses is performed without contrast, axial images are obtained, coronal r eformatted images are also reviewed. FINDINGS: There is mucosal thickening involving the frontal sinus and ethmoidal air cells greater on the left. Nasal septal deviation is seen with very minimal bilateral maxillary sinus mucosal thickeni ng. Very minimal sphenoidal sinus mucosal thickening. No air-fluid levels. The ostiomeatal complex is patent on the right and narrowed on the left secondary to mucosal thickening. Visualized portion of mastoid air cells show no abnormal opacification. The globes are intact bilate rally. There is hypertrophic degenerative changes. Intracranially there is degenerative change with low attenuation in the white matter which is nonspecific but most typical of remote white matter isc hemia. Intracranial atherosclerotic changes are noted. IMPRESSION: 1. Mild chronic sinusitis. Ostiomeatal complex narrowed on the left due to localized mucosal thickeni ng. 2. Nasal septal deviation.
== END | disposition home or self-care (01) ==
LOC: RADCTMAIN 16:15
PROVIDERS: ATTEND Internal Medicine Geriatric Medicine
DX: J32.0 Chronic maxillary sinusitis (principal); J34.2 Deviated nasal septum
CPT/HCPCS: 70486

== ENCOUNTER → 2022-02-03 | Outpatient (CLI) | payer MEDICARE, BC ==
--- NOTE | 2022-02-03 11:41 | FL ---
EXAMINATION TYPE: FL barium swallow w video DATE OF EXAM: 02/03/2022 CLINICAL HISTORY: 86-year-old female R1 3.10, coughing with solids and was, Dysphagia. TECHNIQUE: Deglutition study is performed utilizing thin liquid barium, nectar thick liquid barium, and barium thick applesauce. COMPARISON: None. Total fluoroscopy time: 1 minute 58 seconds. Total images: None. Real-time fluoroscopy support was provided to speech pathology. FINDINGS: The oral and pharyngeal phases show satisfactory initiation and propagation with all modalities teste d. Normal mastication is seen with solid modalities tested. There is mild intermittent penetration with thin liquids. Mild vallecular and pharyngeal residuals are noted that clear with a double swallo w. No aspiration is seen. IMPRESSION: Intermittent mild penetration with thin liquids. Some residuals which clear after a double swallow. N o aspiration. Please refer to speech therapist notes for further details if necessary.
== END | disposition home or self-care (01) ==
LOC: RADFLMAIN 10:51
PROVIDERS: ATTEND Otolaryngology
DX: R13.10 Dysphagia, unspecified (principal)
CPT/HCPCS: 74230

== ENCOUNTER 2022-02-13 10:58 | Day surgery (SDC) | payer MEDICARE, BC ==
[2022-02-11 12:24] VITALS: BMI 27.2
[~2022-02-13 10:58] MED LIST changes: -ACETAMINOPHEN TAB 500 MG TAB PO PRN; -DEXAMETHASONE SOD PHOSPHATE 4 MG/ML 1 ML VIAL IV ONE; -GABAPENTIN 300 MG CAP PO PRN; -HYDROmorphone 0.5 MG/0.5 ML SYRINGE IVP PRN; +LACTATED RINGERS 1,000 ML IV SCH; +LIDOCAINE 1% (10MG/ML) FOR IV START INTRADERMA PRN; -MIDAZOLAM 2 MG/2 ML VIAL IV PRN; -ONDANSETRON 4 MG/2 ML VIAL IVP ONE; -ROPIVACAINE/EPI/CLONIDINE/KET 50 ML SYRINGE MISCELLANE PRN; -TRANEXAMIC ACID 1,000 MG in SODIUM CHLORIDE 0.9% 100 ML IVPB PRN
[2022-02-13 13:11] VITALS: RESP 16; TEMP 98.1
[2022-02-13 13:20] LABS: Glucose,Whole Blood 89 mg/dL (70-110)
[2022-02-13] MEDS ORDERED: LACTATED RINGERS 1,000 ML IV ONE (13:21)
[2022-02-13] MEDS ORDERED: PROPOFOL 10 MG/ML 20 ML VIAL IV ONE (13:49)
[2022-02-13] MEDS ORDERED: LIDOCAINE 2% INJ 20 MG/ML (2 ML VIAL) ONE (13:49)
--- NOTE | 2022-02-13 14:03 | P.PCN ---
Date of Procedure: 02/13/22 Procedure(s) Performed: BRIEF HISTORY: Patient is a 86-year-old, pleasant, white male scheduled for an upper endoscopy as a part of evaluation of intermittent dysphagia to solids for the last 3-6 months duration.. PROCEDURE PERFORMED: Esophagogastroduodenoscopy with biopsy and dilation. PREOPERATIVE DIAGNOSIS: Intermittent dysphagia to solids IV sedation per anesthesia. PROCEDURE: After informed consent was obtained, the patient was brought into the endoscopy unit. IV sedation was administered by Anesthesia under continuous monitoring. Initially the Olympus GIF-140 video endoscope was inserted into the mouth. Esophagus intubated without any difficulty. It was gradually advanced into the stomach and duodenum and carefully examined. The bulb and the second part of the duodenum appeared normal. The scope at this time was withdrawn to the stomach, adequately insufflated with air, and upon careful examination, mucosa of the antrum, body, cardia and the fundus appeared normal. The scope was then withdrawn into the esophagus. Moderate size hiatal hernia noted. The GE junction was located at 39 cm from the incisors. There was a distal esophageal stricture identified. This was dilated using 18-20 mm TTS balloon in a sequential fashion for 30 seconds. There was short segment Ugalde's esophagus extending from 38-39 cm semi-incisors and multiple biopsies were done from the area. The esophagus appeared normal. There were no erosions or ulcerations seen and the patient tolerated the procedure well. IMPRESSION: 1.. Distal esophageal stricture status post balloon dilation using 18-20 mm TTS balloon as described above 2. Small to moderate size hiatal hernia 3. Short segment Ugalde's esophagus. RECOMMENDATIONS: The findings of this examination were discussed with the patient as well as his family. He was advised to be on a clear liquid diet for lunch today. Follow with the biopsy results. If the biopsy confirms the presence of Ugalde's esophagus he can have a repeat upper endoscopy in 3 years.
[2022-02-13 14:30] VITALS: BP 142/78; PULSE 85
== END 2022-02-13 15:06 | disposition home or self-care (01) ==
LOC: ORWHC2ENDO 10:58
PROVIDERS: ATTEND Internal Medicine Gastroenterology
DX: K20.90 Esophagitis, unspecified without bleeding (principal); K44.9 Diaphragmatic hernia without obstruction or gangrene; Z88.0 Allergy status to penicillin; Z79.899 Other long term (current) drug therapy
CPT/HCPCS: 43239; 43249; J2704; J2001; C1726; 88305

== ENCOUNTER → 2022-03-18 | Outpatient (CLI) | payer MEDICARE, BC ==
--- NOTE | 2022-03-18 15:26 | XR ---
EXAMINATION TYPE: XR chest special 4+ views DATE OF EXAM: 03/18/2022 CLINICAL HISTORY: Cough. TECHNIQUE: Frontal and lateral views of the chest are obtained. COMPARISON: Chest x-ray October 07, 2021 FINDINGS: There is persistent lateral left basilar opacity. This is best seen on frontal view and on e of the oblique projections. Right lung is clear. No pleural effusion or pneumothorax seen bilateral ly. The cardiac silhouette size is stable and within normal limits with atherosclerotic chronic nelson es aortic knob. Multilevel spurring in the thoracic spine. IMPRESSION: Left basilar opacity remains present. CTA chest September 30, 2019 shows some focal scarring at this level. No new acute infiltrate clearly seen.
== END | disposition home or self-care (01) ==
LOC: RADXRMAIN 15:02
PROVIDERS: ATTEND Otolaryngology
DX: R91.8 Other nonspecific abnormal finding of lung field (principal)
CPT/HCPCS: 71048

== ENCOUNTER → 2022-04-09 | Outpatient (CLI) | payer MEDICARE, BC ==
--- NOTE | 2022-04-09 13:13 | XR ---
EXAMINATION TYPE: XR chest 2V DATE OF EXAM: 04/09/2022 COMPARISON: 10/07/2021 HISTORY: 86-year-old male J18.9 TECHNIQUE: Frontal and lateral views FINDINGS: Heart normal size. Atherosclerotic arch calcifications. Bony vasculature within normal limits. Some s trandy atelectasis at the left base. No consolidation or pleural effusion. 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 IMPRESSION: No acute cardiopulmonary process.
== END | disposition home or self-care (01) ==
LOC: RADXRMAIN 11:08
PROVIDERS: ATTEND Internal Medicine Geriatric Medicine
DX: J18.9 Pneumonia, unspecified organism (principal)
CPT/HCPCS: 71046

== ENCOUNTER 2024-04-22 18:17 | Emergency (ER) | payer MEDICARE, BC ==
[2024-04-22 18:32] VITALS: RESP 18; TEMP 98.2
--- NOTE | 2024-04-22 18:33 | ED ---
General Adult HPI - General Chief complaint: Altered Mental Status Stated complaint: Altered Mental Status Time Seen by Provider: 04/22/24 18:24 Source: patient, EMS Mode of arrival: EMS Limitations: no limitations - History of Present Illness Initial comments: This patient is an 88-year-old man brought to have evaluation for altered mental status. The patient reportedly had gone to dinner at the [facility] and then had become less responsive. EMS was called to the scene and transported him here. On arrival the patient is not responding verbally. The patient's son arrived and states that going back a little over a year he has been getting e pisodes like this particularly at this time of day. They state that for about an hour give or take he will not speak. He becomes very still. The patient will remain alert but appears not able to move, after about an hour symptoms resolved and he becomes more like his usual self. -: minutes(s) Severity scale (1-10): 0 Improves with: none Worsens with: none Associated Symptoms: denies other symptoms Treatments Prior to Arrival: none - Related Data Home Medications Medication Instructions Recorded Confirmed Finasteride [Proscar] 5 mg PO HS 09/29/19 04/22/24 allopurinoL [Zyloprim] 100 mg PO DAILY 09/29/19 04/22/24 Cholecalciferol [Vitamin D3 (25 50 mcg PO DAILY 12/18/20 04/22/24 Mcg = 1000 Iu)] Tamsulosin [Flomax] 0.4 mg PO DAILY 12/18/20 04/22/24 Cetirizine HCl [Zyrtec] 10 mg PO DAILY 02/12/22 04/22/24 Pantoprazole [Protonix] 40 mg PO DAILY 02/12/22 04/22/24 Albuterol Sulfate [Ventolin HFA] 2 puff INHALATION RT-Q4H PRN 04/22/24 04/22/24 Benzonatate [Tessalon Perle] 200 mg PO TID PRN 04/22/24 04/22/24 DULoxetine HCL [Cymbalta] 60 mg PO DAILY 04/22/24 04/22/24 Escitalopram [Lexapro] 5 mg PO DAILY 04/22/24 04/22/24 Fexofenadine HCl [Delfina Allergy] 180 mg PO HS 04/22/24 04/22/24 Fluticasone/Umeclidin/Vilanter 1 puff INHALATION RT-DAILY 04/22/24 04/22/24 [[place] Ellipta 200-62.5-25] Montelukast [Singulair] 10 mg PO HS 04/22/24 04/22/24 clindamycin HCL 600 mg PO ONCE PRN 04/22/24 04/22/24 Previous Rx's Medication Instructions Recorded Ciprofloxacin HCl [Cipro] 500 mg PO Q12HR #14 tablet 04/22/24 Allergies Allergy/AdvReac Type Severity Reaction Status Date / Time amoxicillin AdvReac HICCUPS Verified 04/22/24 18:50 Penicillins AdvReac HICCUPS Verified 04/22/24 18:50 Review of Systems ROS Statement: Those systems with pertinent positive or pertinent negative responses have been documented in the HPI. ROS Other: All systems not noted in ROS Statement are negative. Limitations: ROS unobtainable due to patients medical condition Constitutional: Denies: fever Respiratory: Denies: cough, dyspnea Gastrointestinal: Denies: vomiting Past Medical History Past Medical History: Cancer, Deep Vein Thrombosis (DVT), Prostate Disorder Additional Past Medical History / Comment(s): Hx skin cancer. Hx DVT in 2019. History of Any Multi-Drug Resistant Organisms: None Reported Past Surgical History: Joint Replacement Additional Past Surgical History / Comment(s): Left hip replacement. Past Anesthesia/Blood Transfusion Reactions: No Reported Reaction Past Psychological History: Anxiety, Depression Smoking Status: Former smoker Past Alcohol Use History: None Reported Past Drug Use History: None Reported - Past Family History Mother Family Medical History: Cancer Father Family Medical History: Cancer General Exam Limitations: no limitations General appearance: alert, in no apparent distress Head exam: Present: atraumatic, normocephalic Eye exam: Present: normal appearance, PERRL, EOMI. Absent: scleral icterus, conjunctival injection, nystagmus ENT exam: Present: normal oropharynx Neck exam: Present: normal inspection, full ROM. Absent: tenderness, meningismus Respiratory exam: Present: normal lung sounds bilaterally. Absent: respiratory distress, wheezes, rales, rhonchi, stridor, accessory muscle use Cardiovascular Exam: Present: regular rate, normal rhythm, normal heart sounds. Absent: systolic murmur, diastolic murmur, rubs, gallop GI/Abdominal exam: Present: soft. Absent: distended, tenderness, guarding, rebound, mass Extremities exam: Present: normal inspection, normal capillary refill. Absent: pedal edema, calf tenderness Back exam: Present: normal inspection. Absent: CVA tenderness (R), CVA tenderness (L) Neurological exam: Present: alert, CN II-XII intact, other (On the neurologic exam, the patient is not responding verbally, but he does follow even multistep commands. No evident deficits other than expressive aphasia). Absent: motor sensory deficit Expanded Neurological exam: Present: expressive aphasia Speech: Present: expressive aphasia Cranial nerves: EOM's Intact: Normal, Tongue Deviation: Normal, Facial Sensation: Normal Cerebellar function: Finger to Nose: Normal Motor strength exam: RUE: 5, LUE: 5, RLE: 5, LLE: 5 Eye Response: (4) open spontaneously Motor Response: (6) obeys commands Verbal Response: (1) no verbal response [place] Total: 11 Skin exam: Present: warm, dry, intact, normal color. Absent: rash Course Vital Signs 04/22/24 04/22/24 18:26 22:12 Temperature 98.2 F 98.2 F Pulse Rate 77 71 Respiratory 18 18 Rate Blood Pressure 153/86 189/87 O2 Sat by Pulse 91 L 100 Oximetry EKG Findings - EKG Results: EKG: interpreted by BONNIE, sinus rhythm (Rate 74 bpm) - Dysrhythmias: Sinus rhythms and dysrhythmias: sinus rhythm - Blocks, [place], Hypertrophy, ST Abn: AV and intraventricular conduction: left bundle branch block (f ixed/intermittent, complete/incomplete) QRS axis and voltage: left axis deviation (-30 to -90) Medical Decision Making - Medical Decision Making The patient had chest x-ray that I interpreted as negative for acute infiltrate, pneumothorax, congestive heart failure The patient had CT scan of the brain that I interpreted as negative for acute bony injury. Negative for acute intracranial hemorrhage or mass effect. Was pt. sent in by a medical professional or institution (, PA, PIGGERY WORKER, urgent care, hospital, or senior care...) When possible be specific @ -[No] Did you speak to anyone other than the patient for history (EMS, parent, family, police, friend...)? What history was obtained from this source @ -[Patient's family members did contribute history Did you review nursing and triage notes (agree or disagree)? Why? @ -[I reviewed and agree with nursing and triage notes] Were old charts reviewed (outside hosp., previous admission, EMS record, old EKG, old radiological studies, urgent care reports/EKG's, senior care records)? Report findings @ -[No old charts were reviewed] Differential Diagnosis (chest pain, altered mental status, abdominal pain women, abdominal pain men, vaginal bleeding, weakness, fever, dyspnea, syncope, headache, dizziness, GI bleed, back pain, seizure, CVA, palpatations, mental health, musculoskeletal)? @ -[not applicable] EKG interpreted by me (3pts min.). @ -[Interpreted as above] X-rays interpreted by me (1pt min.). @ -[I interpreted as above CT interpreted by me (1pt min.). @ -[I interpreted as above U/S interpreted by me (1pt. min.). @ -[None done] What testing was considered but not performed or refused? (CT, X-rays, U/S, labs)? Why? @ -[None] What meds were considered but not given or refused? Why? @ -[None] Did you discuss the management of the patient with other professionals (professionals i.e. , PA, PIGGERY WORKER, lab, RT, psych nurse, social services aide, container washer machine, teacher, special service officer, telephonic nurse case manager)? Give summary @ -[No] Was smoking cessation discussed for >3mins.? @ -[No] Was critical care preformed (if so, how long)? @ -[No] Were there social determinants of health that impacted care today? How? (Homelessness, low income, unemployed, alcoholism, drug addiction, transportation, low edu. Level, literacy, decrease access to med. care, custodial, rehab)? @ -[No] Was there de-escalation of care discussed even if they declined (Discuss DNR or withdrawal of care, Hospice)? DNR status @ -[No] What co-morbidities impacted this encounter? (DM, HTN, Smoking, COPD, CAD, Cancer, CVA, ARF, Chemo, Hep., AIDS, mental health diagnosis, sleep apnea, m orbid obesity)? @ -[None] Was patient admitted / discharged? Hospital course, mention meds given and route, prescriptions, significant lab abnormalities, going to OR and other pertinent info. @ -[Patient is an 88-year-old man brought to have evaluation of altered mental status. The patient has had previous episodes of this before and then reverted to normal. Today, the patient did return to interacting normally and did express that sometimes he just does not feel like talking. Patient described depressed mood. The patient's workup does reveal evidence of urinary tract infection. On reevaluation, patient and family would like to have a course of antibiotics as outpatient and they will follow with psychiatry to address mood disorder. They will return should there be any difficulty with this plan or if there are any new symptoms. Undiagnosed new problem with uncertain prognosis? @ -[No] Drug Therapy requiring intensive monitoring for toxicity (Heparin, Nitro, Insulin, Cardizem)? @ -[No] Were any procedures done? @ -[No] Diagnosis/symptom? @ -[Acute urinary tract infection Mood disorder Acute, or Chronic, or Acute on Chronic? @ -[Acute Uncomplicated (without systemic symptoms) or Complicated (systemic symptoms)? @ -[Uncomplicated Side effects of treatment? @ -[No] Exacerbation, Progression, or Severe Exacerbation? @ -[No] Poses a threat to life or bodily function? How? (Chest pain, [place], SC, pneumonia, PE, COPD, DKA, ARF, appy, cholecystitis, CVA, Diverticulitis, Homicidal, Suicidal, threat to staff... and all critical care pts) @ -[No] All treatments are based on ideal body weight as in ED triage - Lab Data Result diagrams: 04/22/24 18:42 04/22/24 19:29 Lab Results 04/22/24 04/22/24 04/22/24 Range/Units 18:42 18:42 18:42 WBC 7.1 (3.8-10.6) k/uL RBC 5.12 (4.30-5.90) m/uL Hgb 16.4 (13.0-17.5) gm/dL Hct 49.7 (39.0-53.0) % MCV 97.0 (80.0-100.0) fL MCH 32.1 (25.0-35.0) pg MCHC 33.0 (31.0-37.0) g/dL RDW 13.7 (11.5-15.5) % Plt Count 177 (150-450) k/uL MPV 7.5 Neutrophils % 67 % Lymphocytes % 21 % Monocytes % 8 % Eosinophils % 2 % Basophils % 1 % Neutrophils # 4.7 (1.3-7.7) k/uL Lymphocytes # 1.5 (1.0-4.8) k/uL Monocytes # 0.6 (0-1.0) k/uL Eosinophils # 0.2 (0-0.7) k/uL Basophils # 0.1 (0-0.2) k/uL PT 11.1 (10.0-12.5) sec INR 1.0 (<1.2) APTT 21.0 L (22.0-30.0) sec Sodium (137-145) mmol/L Potassium (3.5-5.1) mmol/L Chloride (98-107) mmol/L Carbon Dioxide (22-30) mmol/L Anion Gap mmol/L BUN (9-20) mg/dL Creatinine (0.66-1.25) mg/dL Est GFR (CKD-EPI)AfAm (>60 ml/min/1.73 sqM) Est GFR (CKD-EPI)NonAf (>60 ml/min/1.73 sqM) Glucose (74-99) mg/dL POC Glucose (mg/dL) (70-110) mg/dL POC Glu Doll Wigs Hackler ID Calcium (8.4-10.2) mg/dL Total Bilirubin (0.2-1.3) mg/dL AST (17-59) U/L ALT (4-49) U/L Alkaline Phosphatase (38-126) U/L Ammonia 10 (<30) umol/L Troponin I (0.000-0.034) ng/mL Total Protein (6.3-8.2) g/dL Albumin (3.5-5.0) g/dL Urine Color Urine Appearance (Clear) Urine pH (5.0-8.0) Ur Specific [place] (1.001-1.035) Urine Protein (Negative) Urine Glucose (UA) (Negative) Urine Ketones (Negative) Urine Blood (Negative) Urine Nitrite (Negative) Urine Bilirubin (Negative) Urine Urobilinogen (<2.0) mg/dL Ur Leukocyte Esterase (Negative) Urine RBC (0-5) /hpf Urine WBC (0-5) /hpf Ur Squamous Epith Cells (0-4) /hpf Amorphous Sediment (None) /hpf Hyaline Casts (0-2) /lpf Urine Mucus (None) /hpf Urine Opiates Screen (NotDetected) Ur Oxycodone Screen (NotDetected) Urine Methadone Screen (NotDetected) Ur Barbiturates Screen (NotDetected) U Tricyclic Antidepress (NotDetected) Ur Phencyclidine Scrn (NotDetected) Ur Amphetamines Screen (NotDetected) U Methamphetamines Scrn (NotDetected) U Benzodiazepines Scrn (NotDetected) Urine Cocaine Screen (NotDetected) U Marijuana (THC) Screen (NotDetected) Serum Alcohol mg/dL 04/22/24 04/22/24 04/22/24 Range/Units 18:42 18:46 19:29 WBC (3.8-10.6) k/uL RBC (4.30-5.90) m/uL Hgb (13.0-17.5) gm/dL Hct (39.0-53.0) % MCV (80.0-100.0) fL MCH (25.0-35.0) pg MCHC (31.0-37.0) g/dL RDW (11.5-15.5) % Plt Count (150-450) k/uL MPV Neutrophils % % Lymphocytes % % Monocytes % % Eosinophils % % Basophils % % Neutrophils # (1.3-7.7) k/uL Lymphocytes # (1.0-4.8) k/uL Monocytes # (0-1.0) k/uL Eosinophils # (0-0.7) k/uL Basophils # (0-0.2) k/uL PT (10.0-12.5) sec INR (<1.2) APTT (22.0-30.0) sec Sodium 137 (137-145) mmol/L Potassium 4.0 (3.5-5.1) mmol/L Chloride 110 H (98-107) mmol/L Carbon Dioxide 22 (22-30) mmol/L Anion Gap 5 mmol/L BUN 20 (9-20) mg/dL Creatinine 1.34 H (0.66-1.25) mg/dL Est GFR (CKD-EPI)AfAm 55 (>60 ml/min/1.73 sqM) Est GFR (CKD-EPI)NonAf 48 (>60 ml/min/1.73 sqM) Glucose 72 L (74-99) mg/dL POC Glucose (mg/dL) 88 (70-110) mg/dL POC Glu Doll Wigs Hackler ID Elisha Gray Calcium 8.6 (8.4-10.2) mg/dL Total Bilirubin 0.9 (0.2-1.3) mg/dL AST 25 (17-59) U/L ALT 16 (4-49) U/L Alkaline Phosphatase 57 (38-126) U/L Ammonia (<30) umol/L Troponin I <0.012 (0.000-0.034) ng/mL Total Protein 6.2 L (6.3-8.2) g/dL Albumin 3.9 (3.5-5.0) g/dL Urine Color Urine Appearance (Clear) Urine pH (5.0-8.0) Ur Specific [place] (1.001-1.035) Urine Protein (Negative) Urine Glucose (UA) (Negative) Urine Ketones (Negative) Urine Blood (Negative) Urine Nitrite (Negative) Urine Bilirubin (Negative) Urine Urobilinogen (<2.0) mg/dL Ur Leukocyte Esterase (Negative) Urine RBC (0-5) /hpf Urine WBC (0-5) /hpf Ur Squamous Epith Cells (0-4) /hpf Amorphous Sediment (None) /hpf Hyaline Casts (0-2) /lpf Urine Mucus (None) /hpf Urine Opiates Screen (NotDetected) Ur Oxycodone Screen (NotDetected) Urine Methadone Screen (NotDetected) Ur Barbiturates Screen (NotDetected) U Tricyclic Antidepress (NotDetected) Ur Phencyclidine Scrn (NotDetected) Ur Amphetamines Screen (NotDetected) U Methamphetamines Scrn (NotDetected) U Benzodiazepines Scrn (NotDetected) Urine Cocaine Screen (NotDetected) U Marijuana (THC) Screen (NotDetected) Serum Alcohol <10 mg/dL 04/22/24 Range/Units 20:53 WBC (3.8-10.6) k/uL RBC (4.30-5.90) m/uL Hgb (13.0-17.5) gm/dL Hct (39.0-53.0) % MCV (80.0-100.0) fL MCH (25.0-35.0) pg MCHC (31.0-37.0) g/dL RDW (11.5-15.5) % Plt Count (150-450) k/uL MPV Neutrophils % % Lymphocytes % % Monocytes % % Eosinophils % % Basophils % % Neutrophils # (1.3-7.7) k/uL Lymphocytes # (1.0-4.8) k/uL Monocytes # (0-1.0) k/uL Eosinophils # (0-0.7) k/uL Basophils # (0-0.2) k/uL PT (10.0-12.5) sec INR (<1.2) APTT (22.0-30.0) sec Sodium (137-145) mmol/L Potassium (3.5-5.1) mmol/L Chloride (98-107) mmol/L Carbon Dioxide (22-30) mmol/L Anion Gap mmol/L BUN (9-20) mg/dL Creatinine (0.66-1.25) mg/dL Est GFR (CKD-EPI)AfAm (>60 ml/min/1.73 sqM) Est GFR (CKD-EPI)NonAf (>60 ml/min/1.73 sqM) Glucose (74-99) mg/dL POC Glucose (mg/dL) (70-110) mg/dL POC Glu Doll Wigs Hackler ID Calcium (8.4-10.2) mg/dL Total Bilirubin (0.2-1.3) mg/dL AST (17-59) U/L ALT (4-49) U/L Alkaline Phosphatase (38-126) U/L Ammonia (<30) umol/L Troponin I (0.000-0.034) ng/mL Total Protein (6.3-8.2) g/dL Albumin (3.5-5.0) g/dL Urine Color Light Yellow Urine Appearance Cloudy (Clear) Urine pH 5.5 (5.0-8.0) Ur Specific [place] 1.014 (1.001-1.035) Urine Protein 2+ H (Negative) Urine Glucose (UA) Negative (Negative) Urine Ketones Negative (Negative) Urine Blood Large H (Negative) Urine Nitrite Negative (Negative) Urine Bilirubin Negative (Negative) Urine Urobilinogen <2.0 (<2.0) mg/dL Ur Leukocyte Esterase Negative (Negative) Urine RBC 135 H (0-5) /hpf Urine WBC 82 H (0-5) /hpf Ur Squamous Epith Cells <1 (0-4) /hpf Amorphous Sediment Rare H (None) /hpf Hyaline Casts 6 H (0-2) /lpf Urine Mucus Occasional H (None) /hpf Urine Opiates Screen Not Detected (NotDetected) Ur Oxycodone Screen Not Detected (NotDetected) Urine Methadone Screen Not Detected (NotDetected) Ur Barbiturates Screen Not Detected (NotDetected) U Tricyclic Antidepress Not Detected (NotDetected) Ur Phencyclidine Scrn Not Detected (NotDetected) Ur Amphetamines Screen Not Detected (NotDetected) U Methamphetamines Scrn Not Detected (NotDetected) U Benzodiazepines Scrn Not Detected (NotDetected) Urine Cocaine Screen Not Detected (NotDetected) U Marijuana (THC) Screen Not Detected (NotDetected) Serum Alcohol mg/dL Disposition Clinical Impression: UTI (urinary tract infection) Disposition: HOME SELF-CARE Condition: Good Instructions (If sedation given, give patient instructions): Urinary Tract Infection in Men (ED), Altered Mental Status (ED) Prescriptions: Ciprofloxacin HCl [Cipro] 500 mg PO Q12HR #14 tablet Is patient prescribed a controlled substance at d/c from ED?: No Referrals: Shemar Torres MD [Primary Care Provider] - 1-2 days Bakari Crane MD [STAFF PHYSICIAN] - 1-2 days
[2024-04-22 18:48] LABS: Glucose,Whole Blood 88 mg/dL (70-110)
--- NOTE | 2024-04-22 19:08 | XR ---
EXAMINATION TYPE: XR chest 2V DATE OF EXAM: 04/22/2024 7:03 PM COMPARISON: Previous chest radiograph 04/09/2020. CLINICAL INDICATION: Male, 88 years old with history of altered mental status; [facility] TECHNIQUE: XR chest 2V Frontal and lateral views of the chest. FINDINGS: Low lung volumes. Lungs/Pleura: There is no evidence of pleural effusion, focal consolidation, or pneumothorax. Pulmonary vascularity: Unremarkable. Heart/mediastinum: Cardiomediastinal silhouette is unremarkable. Musculoskeletal: No acute osseous pathology. Other findings: None IMPRESSION: No acute cardiopulmonary disease/process. [facility], , 04/22/2024 7:06 PM
[2024-04-22] MEDS: SODIUM CHLORIDE 0.9% 500 ML 500 ML IV ONE (19:11)
[2024-04-22 19:12] LABS: Basophils # (A) 0.1 k/uL (0-0.2); Basophils % (A) 1 %; Eosinophils # (A) 0.2 k/uL (0-0.7); Eosinophils % (A) 2 %; HCT 49.7 % (39.0-53.0); HGB 16.4 gm/dL (13.0-17.5); Lymphocytes # (A) 1.5 k/uL (1.0-4.8); Lymphocytes % (A) 21 %; MCH 32.1 pg (25.0-35.0); Mean Platelet Volume 7.5; Monocytes # (A) 0.6 k/uL (0-1.0); Monocytes % (A) 8 %; Neutrophils # (A) 4.7 k/uL (1.3-7.7); Neutrophils % (A) 67 %; Platelet Count 177 k/uL (150-450); RBC 5.12 m/uL (4.30-5.90); RDW 13.7 % (11.5-15.5); WBC 7.1 k/uL (3.8-10.6)
--- NOTE | 2024-04-22 19:20 | CT ---
EXAMINATION TYPE: CT brain wo con DATE OF EXAM: 04/22/2024 7:11 PM COMPARISON: None available.. CLINICAL INDICATION: Male, 88 years old with history of Altered mental status, AMS. TECHNIQUE: Brain: Axial CT images of the brain were obtained with coronal and sagittal reformats created and rev iewed. Contrast used: None. Oral contrast used: None. CT DLP: 1197.7 mGycm, Automated exposure control for dose reduction was used. FINDINGS: Brain: No acute intracranial hemorrhage, midline shift or significant mass effect. Vascular calcifications o f the vertebral arteries and carotid arteries noted. No sizable extra-axial fluid collection. Ventric les and sulci are prominent with generalized cerebral volume loss. Patchy periventricular and subcort ical white matter hypoattenuation likely reflecting chronic medical vascular ischemic disease. Basal cisterns are patent. No depressed calvarial fracture or significant scalp hematoma. Paranasal sinuses and mastoid air cells appear patent. Bilateral cataract lens extraction noted. IMPRESSION: No acute intracranial process. [facility], , 04/22/2024 7:17 PM
[2024-04-22 19:25] LABS: Prothrombin Time 11.1 sec (10.0-12.5)
[2024-04-22 20:28] LABS: ALT 16 U/L (4-49); AST 25 U/L (17-59); African American GFR (CKD) 55 (>60 ml/min/1.73 sqM); Albumin 3.9 g/dL (3.5-5.0); Alcohol <10 mg/dL; Alkaline Phosphatase 57 U/L (38-126); Anion Gap 5 mmol/L; Blood Urea Nitrogen 20 mg/dL (9-20); Calcium 8.6 mg/dL (8.4-10.2); Carbon Dioxide 22 mmol/L (22-30); Chloride 110 mmol/L (98-107); Glucose 72 mg/dL (74-99); Non-African American GFR(CKD) 48 (>60 ml/min/1.73 sqM); Sodium 137 mmol/L (137-145); Total Bilirubin 0.9 mg/dL (0.2-1.3); Total Protein 6.2 g/dL (6.3-8.2)
[2024-04-22 21:21] LABS: Amorphous Sediment,Urine Rare /hpf; Appearance,Urine Cloudy (Clear); Bilirubin,Urine Negative (Negative); Blood,Urine Large (Negative); Color,Urine Light Yellow; Glucose,Urine (UA) Negative (Negative); Hyaline Casts,Urine 6 /lpf (0-2); Ketones,Urine Negative (Negative); Leukocyte Esterase,Urine Negative (Negative); Mucus,Urine Occasional /hpf; Nitrite,Urine Negative (Negative); PH, Urine 5.5 (5.0-8.0); Protein,Urine 2+ (Negative); RBC,Urine 135 /hpf (0-5); Specific Gravity,Urine 1.014 (1.001-1.035); Squamous Epithelial Cell,Urine <1 /hpf (0-4); Urobilinogen,Urine <2.0 mg/dL (<2.0); WBC,Urine 82 /hpf (0-5)
[2024-04-22 21:31] LABS: Amphetamine Screen,Urine Not Detected (NotDetected); Barbiturate Screen,Urine Not Detected (NotDetected); Benzodiazepines Screen,Urine Not Detected (NotDetected); Cocaine Screen,Urine Not Detected (NotDetected); Methadone Screen, Urine Not Detected (NotDetected); Opiate Screen,Urine Not Detected (NotDetected); Oxycodone Screen, Urine Not Detected (NotDetected); Phencyclidine Screen,Urine Not Detected (NotDetected); Tricyclic Antidepressant,Urine Not Detected (NotDetected); Urn Cannabinoid Scrn Not Detected (NotDetected)
[2024-04-22] MEDS: LEVOFLOXACIN 500 MG TAB PO STA (22:11)
[2024-04-22 22:13] VITALS: BP 189/87; PULSE 71
== END 2024-04-22 22:13 | disposition home or self-care (01) ==
LOC: EC 18:17
DX: N39.0 Urinary tract infection, site not specified (principal); Z88.0 Allergy status to penicillin; Z87.891 Personal history of nicotine dependence
CPT/HCPCS: 36415; 93005; 80053; 82140; 84484; 85025; 85610; 85730; 81001; 80306; 71046; 70450; 99285; 96360; 96361; G0480; 80320

== ENCOUNTER 2024-08-02 10:42 | Day surgery (SDC) | payer MEDICARE, BC ==
[~2024-08-02 10:42] MED LIST changes: +HYDROmorphone 0.5 MG/0.5 ML SYRINGE IVP PRN; -LACTATED RINGERS 1,000 ML IV SCH
[2024-08-02] MEDS: IV FLUID CONTINUATION 1,000 ML IV ONE (11:09)
[2024-08-02 11:13] VITALS: TEMP 97
[2024-08-02] MEDS: ONDANSETRON 4 MG/2 ML VIAL IVP ONE (11:29)
[2024-08-02] MEDS: DEXAMETHASONE SOD PHOSPHATE 4 MG/ML 1 ML VIAL IV ONE (11:29)
[2024-08-02] MEDS ORDERED: KETAMINE HCL IN 0.9 % NACL 50 MG/5 ML SYRINGE ONE (11:30)
[2024-08-02] MEDS ORDERED: fentaNYL (PF) 50 MCG/ML 2 ML AMP ONE (11:30)
[2024-08-02] MEDS ORDERED: PHENYLEPHRINE-0.9% NACL SYG 1,000 MCG/10 ML SYRINGE ONE (11:30)
[2024-08-02] MEDS ORDERED: PROPOFOL 10 MG/ML 20 ML VIAL IV ONE (11:30)
[2024-08-02] MEDS: FAMOTIDINE 20 MG/2 ML VIAL IV PRN (11:30)
[2024-08-02] MEDS: LACTATED RINGERS 1,000 ML IV SCH (11:33)
[2024-08-02] MEDS: CLINDAMYCIN 600 MG in DEXTROSE 5% IN WATER 50 ML IVPB PRN (11:34)
[2024-08-02] MEDS: LIDOCAINE 1%-EPI 1:100,000 20 ML VIAL SQ ONE (11:48)
--- NOTE | 2024-08-02 13:11 | P.OP ---
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 Patient underwent induction of sedation after appropriate monitors were placed by the curator natural history museum. The patient then prepped and draped in usual aseptic fashion. 1% lidocaine with 1-100,000 epinephrine was infused subcutaneously and field block fashion. This was left to work for 7 minutes vasoconstrictive effect. The lesion was excised from the surrounding tissue grossly entirely and was sent to the pathologist for review. This returned as squamous cell carcinoma with negative margins. Due to the size and location the defect this required local flap reconstruction which was a rhomboid fla posteriorly but rotated from inferiorly. This was raised in the same plane as the defect and the edges of the wound are undermined. This was then rotated and advanced into position with good hemostasis noted with electrocautery and the wound was closed both the primary and secondary defect with inverted interrupted 5-0 Vicryl suture and the subcutaneous layer and simple interrupted and running locking 5-0 Prolene suture and the skin. Bacitracin ointment and sterile dressings were placed. The flap had 100% take and good capillary refill. The patient was then allowed to emerge from anesthesia and was transferred to postop recovery area in satisfactory condition.
[2024-08-02 14:00] VITALS: PULSE 66
[2024-08-02 14:19] VITALS: BP 114/68; RESP 20
== END 2024-08-02 14:45 | disposition home or self-care (01) ==
LOC: OR 10:42
PROVIDERS: ATTEND Otolaryngology
DX: C44.329 Squamous cell carcinoma of skin of other parts of face (principal); J44.9 Chronic obstructive pulmonary disease, unspecified; K22.70 Barrett's esophagus without dysplasia; H91.90 Unspecified hearing loss, unspecified ear; J30.1 Allergic rhinitis due to pollen; N28.9 Disorder of kidney and ureter, unspecified; E66.3 Overweight; Z68.25 Body mass index [BMI] 25.0-25.9, adult; Z79.899 Other long term (current) drug therapy; Z87.891 Personal history of nicotine dependence; Z88.0 Allergy status to penicillin; Z98.49 Cataract extraction status, unspecified eye
CPT/HCPCS: 88305; 88331; 14040; J1100; J2405; J3010; J3490; J2704; J2371; J0736